=== PATIENT | female | born 1940 | race Caucasian/White ===

== ENCOUNTER → 2017-01-09 | Outpatient (CLI) | payer MEDICARE, OTHER ==
[~2017-01-09] MED LIST: AMIT25TA9 PO; ASPI-992 PO; BACL10TA PO; CITA20TA7 PO; CNC1KV IJ; GABA-488 PO; LANS30CA PO; LEVO50TA PO; LEVO50TA6 PO; LEVO75TA6 PO; POLY17PO23 PO
== END ==
LOC: CARD 08:48
PROVIDERS: ATTEND Internal Medicine Cardiovascular Disease
DX: D15.1 Benign neoplasm of heart (principal); R07.9 Chest pain, unspecified; I95.1 Orthostatic hypotension; R60.0 Localized edema; R55 Syncope and collapse
CPT/HCPCS: 93306

== ENCOUNTER → 2017-04-11 | Outpatient (CLI) | payer MEDICARE, OTHER ==
--- NOTE | 2017-04-11 15:03 | Diagnostic Imaging Report ---
PROCEDURE: CT head without contrast. TECHNIQUE: Multiple contiguous axial images were obtained through the brain without the use of intravenous contrast. INDICATION: Slurred speech and left visual problems. COMPARISON: Prior head CT from 01/28/2016. FINDINGS: The ventricles and sulci are stable in appearance. No sulcal effacement, midline shift or hemorrhage is detected. Cisterns are patent. The visualized paranasal sinuses are clear. IMPRESSION: No acute intracranial process is detected. Dictated by: Dictated on workstation # [id number]
== END ==
LOC: RAD 14:15
PROVIDERS: ATTEND Nurse Practitioner Family
DX: R47.81 Slurred speech (principal); H54.7 Unspecified visual loss
CPT/HCPCS: 36415; 70450; 85652; 86038; 86141

== ENCOUNTER → 2017-04-17 | Outpatient (CLI) | payer MEDICARE, OTHER ==
--- NOTE | 2017-04-17 15:43 | Diagnostic Imaging Report ---
PROCEDURE: US carotid duplex, bilateral. TECHNIQUE: Multiple real-time grayscale images were obtained over the carotid arteries in various projections, bilaterally. Additional duplex Doppler and color Doppler images were also obtained. INDICATION: Left eye blindness. FINDINGS: No significant plaque is identified. The velocities are normal. No velocity elevation or stenosis is seen. Both vertebral arteries show antegrade flow. IMPRESSION: No evidence of a hemodynamically significant stenosis. Dictated by: Dictated on workstation # [id number]
== END ==
LOC: RAD 15:03
PROVIDERS: ATTEND Nurse Practitioner Family
DX: G45.9 Transient cerebral ischemic attack, unspecified (principal); H54.62 Unqualified visual loss, left eye, normal vision right eye
CPT/HCPCS: 93880

== ENCOUNTER 2017-06-26 09:58 | Day surgery (SDC) | payer MEDICARE, OTHER ==
[2017-06-26] VITALS (7 sets, daily range): BP systolic 120–147; BP diastolic 8–80
[~2017-06-26] VITALS: Ht 160 cm; Wt 61.2 kg
[~2017-06-26 09:58] MED LIST changes: -CITA20TA7 PO; +CITA20TA9 PO
[2017-06-26] MEDS ORDERED: LIDOCAINE 1% INJ 20 ML 20 ML VIAL ONE (10:00)
[2017-06-26] MEDS ORDERED: LIDOCAINE 2% VISCOUS 15 ML UDC ONE (10:00)
[2017-06-26] MEDS ORDERED: NS IV 1000 ML 1,000 ML ONE (10:00)
--- OUTSIDE RECORDS SUMMARY | 2017-06-26 10:02 | XMS REPORT | Continuity of Care Document ---
Author Author [facility] Organization [facility] Address Unknown Phone Unavailable Allergies Active Description Code Type Severity Reaction Onset Reported/Identified Relationship to Patient Clinical Status Yes Sulfa (Sulfonamide Antibiotics) [id number] Drug Allergy Moderate Rash 06/16 Yes sulfamethoxazole [id number] Drug Allergy Moderate rash 06/17/2015 Yes trimethoprim [id number] Drug Allergy Moderate rash 06/17/2015 Yes LORACET LORACET Mild n/v 06/17/2015 Yes acetaminophen [id number] Drug Allergy Unknown N/A 06/17/2015 Yes hydrocodone [id number] Drug Allergy Unknown N/A 06/17/2015 Medications There is no data. Problems Date Dx Coded Attending Type Code Diagnosis Diagnosed By 01/24/1599 DAE KERR APRN Ot S31.100A UNSP OPN WND ABD WALL, R UPPER Q W/O PEN 01/24/1599 DAE KERR APRN Ot T81.89XA OTH COMPLICATIONS OF PROCEDURES, NEC, IN 06/17/2015 LASHA RAUSCH MD Ot I10 ESSENTIAL (PRIMARY) HYPERTENSION 06/17/2015 LASHA RAUSCH MD Ot I95.1 ORTHOSTATIC HYPOTENSION 06/17/2015 LASHA RAUSCH MD Ot K57.90 DVRTCLOS OF INTEST, PART UNSP, W/O PERF 06/17/2015 LASHA RAUSCH MD Ot R93.1 ABNORMAL FINDINGS ON DX IMAGING OF HEART 06/17/2015 LASHA RAUSCH MD Ot Z79.899 OTHER ALF (CURRENT) DRUG THERAPY 06/20/2015 LASHA RAUSCH MD Ot I10 ESSENTIAL (PRIMARY) HYPERTENSION 06/20/2015 LASHA RAUSCH MD Ot I95.1 ORTHOSTATIC HYPOTENSION 06/20/2015 LASHA RAUSCH MD Ot K57.90 DVRTCLOS OF INTEST, PART UNSP, W/O PERF 06/20/2015 LASHA RAUSCH MD Ot R93.1 ABNORMAL FINDINGS ON DX IMAGING OF HEART 06/20/2015 MIRACLE HERNANDEZ, LASHA Shields Ot Z79.899 OTHER ALF (CURRENT) DRUG THERAPY 06/30/2015 EVERTON SHAH MD Ot D15.1 BENIGN NEOPLASM OF HEART 06/30/2015 EVERTON SHAH MD Ot E03.9 HYPOTHYROIDISM, UNSPECIFIED 06/30/2015 EVERTON SHAH MD Ot G62.9 POLYNEUROPATHY, UNSPECIFIED 06/30/2015 EVERTON SHAH MD Ot G97.82 OT POSTPROC COMPLICATIONS AND DISORDERS 06/30/2015 EVERTON SHAH MD Ot H54.41 BLINDNESS, RIGHT EYE, NORMAL VISION LEFT 06/30/2015 EVERTON SHAH MD Ot I10 ESSENTIAL (PRIMARY) HYPERTENSION 06/30/2015 EVERTON SHAH MD Ot I34.0 NONRHEUMATIC MITRAL (VALVE) INSUFFICIENC 06/30/2015 EVERTON SHAH MD Ot I69.398 OTHER SEQUELAE OF CEREBRAL INFARCTION 06/30/2015 EVERTON SHAH MD Ot R55 SYNCOPE AND COLLAPSE 06/30/2015 EVERTON SHAH MD Ot Z79.899 OTHER POST ACUTE CARE NURSE (CURRENT) DRUG THERAPY 07/18/2015 EVERTON SHAH MD Ot D15.1 BENIGN NEOPLASM OF HEART 07/18/2015 EVERTON SHAH MD Ot E03.9 HYPOTHYROIDISM, UNSPECIFIED 07/18/2015 EVERTON SHAH MD Ot G62.9 POLYNEUROPATHY, UNSPECIFIED 07/18/2015 EVERTON SHAH MD Ot G97.82 OT POSTPROC COMPLICATIONS AND DISORDERS 07/18/2015 EVERTON SHAH MD Ot H54.41 BLINDNESS, RIGHT EYE, NORMAL VISION LEFT 07/18/2015 EVERTON SHAH MD Ot I10 ESSENTIAL (PRIMARY) HYPERTENSION 07/18/2015 EVERTON SHAH MD Ot I34.0 NONRHEUMATIC MITRAL (VALVE) INSUFFICIENC 07/18/2015 EVERTON SHAH MD Ot I69.398 OTHER SEQUELAE OF CEREBRAL INFARCTION 07/18/2015 EVERTON SHAH MD Ot R55 SYNCOPE AND COLLAPSE 07/18/2015 EVERTON SHAH MD Ot Z79.899 OTHER ALF (CURRENT) DRUG THERAPY 08/16/2015 DAVID HERNANDEZ DAYDAY E Ot E03.9 HYPOTHYROIDISM, UNSPECIFIED 08/16/2015 DAVID HERNANDEZ DAYDAY E Ot E87.1 HYPO-OSMOLALITY AND HYPONATREMIA 08/16/2015 DAVID HERNANDEZ DAYDAY E Ot E87.6 HYPOKALEMIA 08/16/2015 DAVID HERNANDEZ DAYDAY E Ot G60.9 HEREDITARY AND IDIOPATHIC NEUROPATHY, UN 08/16/2015 DAVID HERNANDEZ DAYDAY E Ot H54.41 BLINDNESS, RIGHT EYE, NORMAL VISION LEFT 08/16/2015 DAVID HERNANDEZ DAYDAY E Ot I10 ESSENTIAL (PRIMARY) HYPERTENSION 08/16/2015 DAVID HERNANDEZ DAYDAY E Ot I69.398 OTHER SEQUELAE OF CEREBRAL INFARCTION 08/16/2015 DAVID HERNANDEZ DAYDAY E Ot K21.9 GASTRO-ESOPHAGEAL REFLUX DISEASE WITHOUT 08/16/2015 DAVID HERNANDEZ DAYDAY E Ot K64.9 UNSPECIFIED HEMORRHOIDS 08/16/2015 DAVID HERNANDEZ DAYDAY E Ot L03.311 CELLULITIS OF ABDOMINAL WALL 08/16/2015 DAVID HERNANDEZ DAYDAY E Ot M75.41 IMPINGEMENT SYNDROME OF RIGHT SHOULDER 08/16/2015 DAVID HERNANDEZ DAYDAY E Ot R53.1 WEAKNESS 08/16/2015 DAYDAY HERNANDEZ MD E Ot T81.4XXA INFECTION FOLLOWING A PROCEDURE, INITIAL 08/16/2015 LESTER HERNANDEZ MDIC E Ot Z48.3 AFTERCARE FOLLOWING SURGERY FOR NEOPLASM 08/16/2015 LESTER HERNANDEZ MDIC E Ot Z86.018 PERSONAL HISTORY OF OTHER BENIGN NEOPLAS 09/15/2015 DAE KERR POOL ATTENDANT Ot S31.100A UNSP OPN WND ABD WALL, R UPPER Q W/O PEN 09/15/2015 DAE KERR R POOL ATTENDANT Ot T81.89XA OTH COMPLICATIONS OF PROCEDURES, NEC, IN 09/26/2015 DAE KERR R POOL ATTENDANT Ot S31.100A UNSP OPN WND ABD WALL, R UPPER Q W/O PEN 09/26/2015 DAE KERR R POOL ATTENDANT Ot T81.89XA OTH COMPLICATIONS OF PROCEDURES, NEC, IN 10/06/2015 DAE KERR R POOL ATTENDANT Ot S31.100A UNSP OPN WND ABD WALL, R UPPER Q W/O PEN 10/06/2015 DAE KERR R POOL ATTENDANT Ot T81.89XA OTH COMPLICATIONS OF PROCEDURES, NEC, IN 10/14/2015 EVERTON SHAH MD Ot D15.1 BENIGN NEOPLASM OF HEART 10/14/2015 EVERTON SHAH MD Ot I63.9 CEREBRAL INFARCTION, UNSPECIFIED 10/14/2015 EVERTON SHAH MD Ot I95.1 ORTHOSTATIC HYPOTENSION 10/14/2015 EVERTON SHAH MD Ot R07.9 CHEST PAIN, UNSPECIFIED 10/14/2015 EVERTON SHAH MD Ot R55 SYNCOPE AND COLLAPSE 10/28/2015 EVERTON SHAH MD Ot D15.1 BENIGN NEOPLASM OF HEART 10/28/2015 EVERTON SHAH MD Ot I63.9 CEREBRAL INFARCTION, UNSPECIFIED 10/28/2015 EVERTON SHAH MD Ot I95.1 ORTHOSTATIC HYPOTENSION 10/28/2015 EVERTON SHAH MD Ot R07.9 CHEST PAIN, UNSPECIFIED 10/28/2015 EVERTON SHAH MD Ot R55 SYNCOPE AND COLLAPSE 11/03/2015 DAE KERR APRN Ot S31.100A UNSP OPN WND ABD WALL, R UPPER Q W/O PEN 11/03/2015 DAE KERR APRN Ot T81.89XA OT COMPLICATIONS OF PROCEDURES, NEC, IN 11/07/2015 EVERTON SHAH MD Ot D15.1 BENIGN NEOPLASM OF HEART 11/07/2015 EVERTON SHAH MD Ot I63.9 CEREBRAL INFARCTION, UNSPECIFIED 11/07/2015 EVERTON SHAH MD Ot I95.1 ORTHOSTATIC HYPOTENSION 11/07/2015 EVERTON SHAH MD Ot R07.9 CHEST PAIN, UNSPECIFIED 11/07/2015 EVERTON SHAH MD Ot R55 SYNCOPE AND COLLAPSE 11/23/2015 KODY SHEA CAR WHACKER Ot E03.9 HYPOTHYROIDISM, UNSPECIFIED 11/24/2015 KODY SHEA CAR WHACKER Ot E03.9 HYPOTHYROIDISM, UNSPECIFIED 11/24/2015 KODY SHEA CAR WHACKER Ot Z79.899 OTHER ALF (CURRENT) DRUG THERAPY 11/25/2015 EVERTON SHAH MD Ot D15.1 BENIGN NEOPLASM OF HEART 11/25/2015 EVERTON SHAH MD Ot I63.9 CEREBRAL INFARCTION, UNSPECIFIED 11/25/2015 EVERTON SHAH MD Ot I95.1 ORTHOSTATIC HYPOTENSION 11/25/2015 ALYSSA HERNANDEZ EVERTON Bar Ot R07.9 CHEST PAIN, UNSPECIFIED 11/25/2015 ALYSSA HERNANDEZ, EVERTON Bar Ot R55 SYNCOPE AND COLLAPSE 11/25/2015 KODY SHEA CAR WHACKER Ot E03.9 HYPOTHYROIDISM, UNSPECIFIED 11/25/2015 KODY SHEA CAR WHACKER Ot Z79.899 OTHER POST ACUTE CARE NURSE (CURRENT) DRUG THERAPY 12/15/2015 KODY SHEA CAR WHACKER Ot E03.9 HYPOTHYROIDISM, UNSPECIFIED 12/15/2015 KODY SHEA CAR WHACKER Ot Z79.899 OTHER ALF (CURRENT) DRUG THERAPY 01/28/2016 LASHA RAUSCH MD Ot G51.0 [place] 01/28/2016 LASHA RAUSCH MD Ot I10 ESSENTIAL (PRIMARY) HYPERTENSION 01/28/2016 LASHA RAUSCH MD Ot R29.810 FACIAL WEAKNESS 01/28/2016 LASHA RAUSCH MD Ot Z79.82 POST ACUTE CARE NURSE (CURRENT) USE OF ASPIRIN 01/28/2016 LASHA RAUSCH MD Ot Z79.899 OTHER ALF (CURRENT) DRUG THERAPY 01/29/2016 ALYSSA HERNANDEZ, EVERTON Bar Ot D15.1 BENIGN NEOPLASM OF HEART 01/29/2016 EVERTON SHAH MD Ot I63.9 CEREBRAL INFARCTION, UNSPECIFIED 01/29/2016 EVERTON SHAH MD Ot I95.1 ORTHOSTATIC HYPOTENSION 01/29/2016 EVERTON SHAH MD Ot R07.9 CHEST PAIN, UNSPECIFIED 01/29/2016 EVERTON SHAH MD Ot R55 SYNCOPE AND COLLAPSE 01/29/2016 KODY SHEAP Ot E03.9 HYPOTHYROIDISM, UNSPECIFIED 01/29/2016 KODY SHEAP Ot Z79.899 OTHER POST ACUTE CARE NURSE (CURRENT) DRUG THERAPY 01/31/2016 LASHA RAUSCH MD Ot G51.0 [place] 01/31/2016 LASHA RAUSCH MD Ot I10 ESSENTIAL (PRIMARY) HYPERTENSION 01/31/2016 LASHA RAUSCH MD Ot R29.810 FACIAL WEAKNESS 01/31/2016 LASHA RAUSCH MD Ot Z79.82 ALF (CURRENT) USE OF ASPIRIN 01/31/2016 LASHA RAUSCH MD Ot Z79.899 OTHER POST ACUTE CARE NURSE (CURRENT) DRUG THERAPY 01/07/2017 EVERTON SHAH MD Ot D15.1 BENIGN NEOPLASM OF HEART 01/07/2017 EVERTON SHAH MD Ot I63.9 CEREBRAL INFARCTION, UNSPECIFIED 01/07/2017 EVERTON SHAH MD J Ot I95.1 ORTHOSTATIC HYPOTENSION 01/07/2017 EVERTON SHAH MD J Ot R07.9 CHEST PAIN, UNSPECIFIED 01/07/2017 EVERTON SHAH MD J Ot R55 SYNCOPE AND COLLAPSE 01/07/2017 KODY SHEA CAR WHACKER Ot E03.9 HYPOTHYROIDISM, UNSPECIFIED 01/07/2017 KODY SHEA CAR WHACKER Ot Z79.899 OTHER ALF (CURRENT) DRUG THERAPY 01/29/2017 EVERTON SHAH MD Ot D15.1 BENIGN NEOPLASM OF HEART 01/29/2017 EVERTON SHAH MD Ot I95.1 ORTHOSTATIC HYPOTENSION 01/29/2017 EVERTON SHAH MD Ot R07.9 CHEST PAIN, UNSPECIFIED 01/29/2017 EVERTON SHAH MD Ot R55 SYNCOPE AND COLLAPSE 01/29/2017 EVERTON SHAH MD Ot R60.0 LOCALIZED EDEMA 04/11/2017 EVERTON SHAH MD Ot D15.1 BENIGN NEOPLASM OF HEART 04/11/2017 EVERTON SHAH MD Ot I63.9 CEREBRAL INFARCTION, UNSPECIFIED 04/11/2017 EVERTON SHAH MD Ot I95.1 ORTHOSTATIC HYPOTENSION 04/11/2017 EVERTON SHAH MD Ot R07.9 CHEST PAIN, UNSPECIFIED 04/11/2017 EVERTON SHAH MD J Ot R55 SYNCOPE AND COLLAPSE 04/11/2017 KODY SHEA CAR WHACKER Ot E03.9 HYPOTHYROIDISM, UNSPECIFIED 04/11/2017 KODY SHEA CAR WHACKER Ot Z79.899 OTHER POST ACUTE CARE NURSE (CURRENT) DRUG THERAPY 04/11/2017 EVERTON SHAH MD Ot D15.1 BENIGN NEOPLASM OF HEART 04/11/2017 EVERTON SHAH MD J Ot I95.1 ORTHOSTATIC HYPOTENSION 04/11/2017 EVERTON SHAH MD J Ot R07.9 CHEST PAIN, UNSPECIFIED 04/11/2017 EVERTON SHAH MD J Ot R55 SYNCOPE AND COLLAPSE 04/11/2017 EVERTON SHAH MD Ot R60.0 LOCALIZED EDEMA 04/16/2017 MARSHALL SHARMA POOL ATTENDANT Ot H53.133 SUDDEN VISUAL LOSS, BILATERAL 04/16/2017 MARSHALL SHARMA POOL ATTENDANT Ot H53.133 SUDDEN VISUAL LOSS, BILATERAL 04/18/2017 MARSHALL SHARMA POOL ATTENDANT Ot G45.9 TRANSIENT CEREBRAL ISCHEMIC ATTACK, UNSP 04/18/2017 MARSHALL SHARMA POOL ATTENDANT Ot H54.62 UNQUALIFIED VISUAL LOSS, LEFT EYE, BENEDICT 05/14/2017 MARSHALL SHARMA POOL ATTENDANT Ot G45.9 TRANSIENT CEREBRAL ISCHEMIC ATTACK, UNSP 05/14/2017 MARSHALL SHARMA POOL ATTENDANT Ot H54.62 UNQUALIFIED VISUAL LOSS, LEFT EYE, BENEDICT 05/17/2017 MARSHALL SHARMA POOL ATTENDANT Ot H54.7 UNSPECIFIED VISUAL LOSS 05/17/2017 MARSHALL SHARMA POOL ATTENDANT Ot R47.81 SLURRED SPEECH 06/25/2017 MARSHALL SHARMA POOL ATTENDANT Ot H54.7 UNSPECIFIED VISUAL LOSS 06/25/2017 MARSHALL SHARMA POOL ATTENDANT Ot R47.81 SLURRED SPEECH 06/25/2017 MRASHALL SHARMA POOL ATTENDANT Ot G45.9 TRANSIENT CEREBRAL ISCHEMIC ATTACK, UNSP 06/25/2017 MARSHALL SHARMA POOL ATTENDANT Ot H54.62 UNQUALIFIED VISUAL LOSS, LEFT EYE, BENEDICT 06/25/2017 EVERTON SHAH MD Ot D15.1 BENIGN NEOPLASM OF HEART 06/25/2017 EVERTON SHAH MD Ot I63.9 CEREBRAL INFARCTION, UNSPECIFIED 06/25/2017 EVERTON SHAH MD Ot I95.1 ORTHOSTATIC HYPOTENSION 06/25/2017 EVERTON SHAH MD Ot R07.9 CHEST PAIN, UNSPECIFIED 06/25/2017 EVERTON SHAH MD Ot R55 SYNCOPE AND COLLAPSE 06/25/2017 KODY SHEA Ot E03.9 HYPOTHYROIDISM, UNSPECIFIED 06/25/2017 KODY SHEA Ot Z79.899 OTHER ALF (CURRENT) DRUG THERAPY 06/25/2017 EVERTON SHAH MD Ot D15.1 BENIGN NEOPLASM OF HEART 06/25/2017 EVERTON SHAH MD Ot I95.1 ORTHOSTATIC HYPOTENSION 06/25/2017 EVERTON SHAH MD Ot R07.9 CHEST PAIN, UNSPECIFIED 06/25/2017 EVERTON SHAH MD Ot R55 SYNCOPE AND COLLAPSE 06/25/2017 EVERTON SHAH MD Ot R60.0 LOCALIZED EDEMA 06/25/2017 MARSHALL SHARMA APRN Ot H54.7 UNSPECIFIED VISUAL LOSS 06/25/2017 MARSHALL SHARMA APRN Ot R47.81 SLURRED SPEECH 06/25/2017 MARSHALL SHARMA APRN Ot G45.9 TRANSIENT CEREBRAL ISCHEMIC ATTACK, UNSP 06/25/2017 MARSHALL SHARMA APRN Ot H54.62 UNQUALIFIED VISUAL LOSS, LEFT EYE, BENEDICT Procedures Code Description Performed By Performed On [id number] INTRODUCTION OF ANTI- INFLAMMATORY INTO J 08/11/2015 Results Test Result Range Complete blood count (CBC) with automated white blood cell (WBC) differential - 11/23/15 11:08 Blood leukocytes automated count (number/volume) 8.1 10*3/uL 4.3-11.0 Blood erythrocytes automated count (number/volume) 4.65 10*6/uL 4.35-5.85 Venous blood hemoglobin measurement (mass/volume) 12.8 g/dL 11.5-16.0 Blood hematocrit (volume fraction) 40 % 35-52 Automated erythrocyte mean corpuscular volume 85 [foz_us] 80-99 Automated erythrocyte mean corpuscular hemoglobin (mass per erythrocyte) 28 pg 25-34 Automated erythrocyte mean corpuscular hemoglobin concentration measurement ( mass/volume) 32 g/dL 32-36 Automated erythrocyte distribution width ratio 14.4 % 10.0-14.5 Automated blood platelet count (count/volume) 275 10*3/uL 130-400 Automated blood platelet mean volume measurement 10.4 [foz_us] 7.4-10.4 Automated blood neutrophils/100 leukocytes 68 % 42-75 Automated blood lymphocytes/100 leukocytes 23 % 12-44 Blood monocytes/100 leukocytes 7 % 0-12 Automated blood eosinophils/100 leukocytes 2 % 0-10 Automated blood basophils/100 leukocytes 1 % 0-10 Blood neutrophils automated count (number/volume) 5.5 10*3 1.8-7.8 Blood lymphocytes automated count (number/volume) 1.9 10*3 1.0-4.0 Blood monocytes automated count (number/volume) 0.6 10*3 0.0-1.0 Automated eosinophil count 0.1 10*3/uL 0.0-0.3 Automated blood basophil count (count/volume) 0.1 10*3/uL 0.0-0.1 Comprehensive metabolic panel - 11/23/15 11:08 Serum or plasma sodium measurement (moles/volume) 138 mmol/L 135-145 Serum or plasma potassium measurement (moles/volume) 3.8 mmol/L 3.6-5.0 Serum or plasma chloride measurement (moles/volume) 105 mmol/L 98-107 Carbon dioxide 22 mmol/L 21-32 Serum or plasma anion gap determination (moles/volume) 11 mmol/L 5-14 Serum or plasma urea nitrogen measurement (mass/volume) 13 mg/dL 7-18 Serum or plasma creatinine measurement (mass/volume) 0.85 mg/dL 0.60-1.30 Serum or plasma urea nitrogen/creatinine mass ratio 15 NRG Serum or plasma creatinine measurement with calculation of estimated glomerular filtration rate > NRG Serum or plasma glucose measurement (mass/volume) 87 mg/dL 70-105 Serum or plasma calcium measurement (mass/volume) 9.6 mg/dL 8.5-10.1 Serum or plasma total bilirubin measurement (mass/volume) 0.4 mg/dL 0.1-1.0 Serum or plasma alkaline phosphatase measurement (enzymatic activity/volume) 74 U/L 40-136 Serum or plasma aspartate aminotransferase measurement (enzymatic activity/ volume) 20 U/L 5-34 Serum or plasma alanine aminotransferase measurement (enzymatic activity/volume ) 15 U/L 0-55 Serum or plasma protein measurement (mass/volume) 7.8 g/dL 6.4-8.2 Serum or plasma albumin measurement (mass/volume) 4.0 g/dL 3.2-4.5 THYROID STIMULATING HORMONE - 11/23/15 11:08 THYROID STIMULATING HORMONE 2.50 u[iU]/mL 0.35-4.94 Serum or plasma thyroxine (T4) free measurement (mass/volume) - 11/23/15 11:08 Serum or plasma thyroxine (T4) free measurement (mass/volume) 0.94 ng/dL 0.70-1.48 Erythrocyte sedimentation rate by westergren method - 04/11/17 14:30 Erythrocyte sedimentation rate by westergren method 26 mm 0-30 Serum or plasma C reactive protein measurement (mass/volume) - 04/11/17 14:30 Serum or plasma C reactive protein measurement (mass/volume) 0.52 mg /dL 0.00-0.50 [id number] - 04/11/17 14:30 Screening antinuclear antibody (AMADEO) assay by enzyme immunoassay <1: 80 <1:80 Encounters ACCT No. Visit Date/Time Discharge Status Pt. Type Provider Facility Loc./Unit Complaint [id number] 04/17/2017 15:03:00 04/17/2017 23:59:59 CLS Outpatient MARSHALL SHARMA APRN [facility] RAD VISION LOSS,TIA [id number] 04/11/2017 14:15:00 04/11/2017 23:59:59 CLS Outpatient MARSHALL SHARMA APRN [facility] RAD WEAKNESS,VISION CHANGE,SLURRED SPEECH [id number] 01/09/2017 08:48:00 01/09/2017 23:59:59 CLS Outpatient EVERTON SHAH MD [facility] CARD CHEST PAIN R07.9 [id number] 01/28/2016 10:06:00 01/28/2016 12:12:00 DIS Emergency MIRACLE HERNANDEZ, LASHA Shields [facility] ER CONGESTION/R SIDE FACIAL NUMBNESS/SLURRED SPEECH [id number] 11/23/2015 11:00:00 11/23/2015 23:59:59 CLS Outpatient KODY SHEA [facility] LAB CBC,TSH,FREE T4 [id number] 11/03/2015 13:36:00 11/03/2015 16:00:00 DIS Outpatient DAE KERR APRN [facility] WOUNDCARE [id number] 10/06/2015 13:27:00 10/06/2015 23:59:59 CLS Outpatient EVERTON SHAH MD [facility] CARD ATRIAL MYXOMA,CVA,CP [id number] 08/07/2015 16:03:00 08/16/2015 14:55:00 DIS Inpatient DAVID HERNANDEZ, DAYDAY Aguiar [facility] IRF DEBILITY [id number] 06/29/2015 08:33:00 06/30/2015 09:30:00 DIS Outpatient ALYSSA HERNANDEZ, EVERTON Bar [facility] CATH DIZZINES,HYPOTENSION [id number] 06/17/2015 11:21:00 06/17/2015 18:07:00 DIS Emergency MIRACLE HERNANDEZ, LASHA Shields [facility] ER CHEST PAIN/LOW BP [id number] 06/26/2017 10:30:00 PEN Preadmit ALYSSA HERNANDEZ, EVERTON Bar [facility] CATH CRYPTOGENIC STROKE
[2017-06-26] MEDS ORDERED: NS IV 1000 ML 1,000 ML IV SCH (10:15)
[2017-06-26] MEDS ORDERED: MIDAZOLAM 5 MG/5 ML (VERSED) VIAL ONE (10:55)
[2017-06-26] MEDS ORDERED: fentaNYL INJECTION 100 MCG/2 ML AMP ONE (10:55)
--- NOTE | 2017-06-26 11:24 | Cardiac Procedure Note-CS/ASA ---
Pre-Procedure Note Pre-Op Procedure Note H&P Reviewed The H&P was reviewed, patient examined and no changes noted. Date H&P Reviewed: June 26, 2017 Time H&P Reviewed: 11:24 Conscious Sedation Pre-Proced Time Reviewed: 11:24 ASA Class: 3 Airway Mallampati Classification: (venetie ira appropriate class) I. II. III, IV Lungs Heart ASA score ASA 1: a normal healthy patient ASA 2: a patient with a mild systemic disease (mid diabetes, controlled hypertension, obesity x ASA 3: a patient with a severe systemic disease that limits activity (angina , COPD, prior Myocardial infarction) ASA 4: a patient with an incapacitating disease that is a constant threat to life (CHF, renal failure) ASA 5: a moribund patient not expected to survive 24 hrs. (ruptured aneurysm) ASA 6: a declared brain patient whose organs are being harvested. For emergent operations, add the letter E after the classification Grade 3 Sedation Plan: Analgesia, Amnesia, Plan communicated to team members, Discussed options with patient/fam, Discussed risks with patient/fam Note The patient is an appropriate candidate to undergo the planned procedure, sedation, and anesthesia. The patient immediately re-assessed prior to indication. EVERTON SHAH MD June 26, 2017 11:24
--- NOTE | 2017-06-26 11:31 | Implantation of Loop Monitor ---
Implant of Loop Monitior IMPLANTATION OF LOOP MONITOR REPORT DATE OF PROCEDURE: 06/26/17 PREOP DIAGNOSIS: Cryptogenic stroke POSTOP DIAGNOSIS: Cryptogenic stroke PROCEDURE DETAILS: The patient is a 76 female with history of paroxysmal atrial fibrillation requiring long-term surveillance. Therefore implantable loop recorder was discussed and agreed with the patient. Informed consent was taken. All risks and complications were discussed at length. The patient was draped and prepped in the usual sterile fashion. Local anesthesia was lidocaine, which was given in the substernal area close to the 4th intercostal space. Loop monitor [employer] with serial number [id number] was implanted according to the protocol. Steri-Strips were placed at the end of the procedure. There were no complications and the patient tolerated the procedure well. The device was interrogated with a voltage of. ANESTHESIA: Local anesthesia with lidocaine. COMPLICATIONS: None CONTRAST/FLUOROSCOPY: None CONCLUSION: Successful reveal device implantation with no complications FINAL DIAGNOSIS: Cryptogenic stroke Atrial myxoma Hypertension Hyperlipidemia EVERTON SHAH MD June 26, 2017 11:31
== END 2017-06-26 12:37 | disposition home or self-care (01) ==
LOC: CATH 09:58
PROVIDERS: ATTEND Internal Medicine Cardiovascular Disease
DX: I63.9 Cerebral infarction, unspecified (principal); D15.1 Benign neoplasm of heart; I10 Essential (primary) hypertension; E78.5 Hyperlipidemia, unspecified; I95.1 Orthostatic hypotension; G62.9 Polyneuropathy, unspecified; E03.9 Hypothyroidism, unspecified
CPT/HCPCS: 33282; 93325

== ENCOUNTER 2017-10-30 05:33 | Outpatient (CLI) | payer MEDICARE, OTHER ==
[~2017-10-30] VITALS: Ht 160 cm; Wt 61.2 kg
[2017-10-30] MEDS ORDERED: LEVO50TA6 PO (16:23)
[2017-10-30] MEDS ORDERED: RIVA20TA PO (16:23)
[2017-10-30] MEDS ORDERED: HYDR25TA4 PO (16:25)
== END 2017-10-30 16:36 | disposition home or self-care (01) ==
LOC: PREOP 05:33
PROVIDERS: ATTEND Surgery
DX: Z01.818 Encounter for other preprocedural examination (principal)

== ENCOUNTER 2017-11-01 06:14 | Day surgery (SDC) | payer MEDICARE, OTHER ==
[~2017-11-01] VITALS: Ht 160 cm; Wt 61.2 kg
[~2017-11-01 06:14] MED LIST changes: +HYDR25TA4 PO; +RIVA20TA PO
[2017-11-01] MEDS ORDERED: ceFAZolin INJECTION 1,000 MG in NS (IVPB) 50 ML IV ONE (06:30)
[2017-11-01] MEDS ORDERED: PREGABALIN 75 MG (LYRICA) CAP PO ONE (06:30)
[2017-11-01] MEDS ORDERED: ACETAMINOPHEN 500 MG TAB (TYLENOL) PO ONE (06:30)
[2017-11-01] MEDS ORDERED: CELECOXIB 100 MG (CeleBREX) CAP PO ONE (06:30)
[2017-11-01 06:35] VITALS: BP 131/84
[2017-11-01] MEDS ORDERED: CATHETER FLUSH 10 ML SYR IV PRN (06:45)
[2017-11-01 07:08] LABS: BASOPHILS % (AUTO) 1 % (0-10); EOSINOPHILS # (AUTO) 0.2 10^3/uL (0.0-0.3); EOSINOPHILS % (AUTO) 3 % (0-10); HEMATOCRIT 32 % (35-52); HEMOGLOBIN 10.3 G/DL (11.5-16.0); LYMPHOCYTES # (AUTO) 1.6 X 10^3 (1.0-4.0); LYMPHOCYTES % (AUTO) 31 % (12-44); MEAN CORPUSCULAR HEMOGLOBIN 27 PG (25-34); MEAN CORPUSCULAR HGB CONC 32 G/DL (32-36); MEAN CORPUSCULAR VOLUME 85 FL (80-99); MEAN PLATELET VOLUME 9.6 FL (7.4-10.4); MONOCYTES # (AUTO) 0.4 X 10^3 (0.0-1.0); MONOCYTES % (AUTO) 8 % (0-12); NEUTROPHILS % (AUTO) 57 % (42-75); PLATELET COUNT 278 10^3/uL (130-400); RED CELL DISTRIBUTION WIDTH 14.9 % (10.0-14.5); WHITE BLOOD COUNT 5.3 10^3/uL (4.3-11.0)
[2017-11-01] MEDS ORDERED: KETAMINE HCL 100 MG/ML 5 ML VIAL ONE (07:10)
[2017-11-01] MEDS: LACTATED RINGERS 1,000 ML IV PRN ×2 (07:14→09:40)
[2017-11-01] MEDS ORDERED: BUP/EPI 0.5% 1:200,000 (SENSORCAINE) 30 ML VIAL ONE (07:23)
[2017-11-01] MEDS ORDERED: ONDANSETRON 4 MG/2 ML (SDV) Z0FRAN ONE (07:40)
[2017-11-01] MEDS ORDERED: LIDOCAINE PF 0.5% 50 ML (XYLOCAINE) VIAL ONE (07:40)
[2017-11-01] MEDS ORDERED: ROCURONIUM 10 MG/ML 5 ML SYRINGE IV ONE (07:40)
[2017-11-01] MEDS ORDERED: DEXAMETHASONE 10 MG/ML (DECADRON) 1 ML VIAL ONE (07:40)
[2017-11-01] MEDS ORDERED: SEVOFLURANE (ULTANE) 15 ML INHAL SOLN ONE ×7 (07:40→10:51)
[2017-11-01] MEDS ORDERED: proPOfol 200 MG/20 ML (DIPRIVAN) VIAL IV ONE (07:40)
[2017-11-01] MEDS ORDERED: NS (IVPB) 250 ML ONE (07:40)
--- NOTE | 2017-11-01 08:29 | Progress Note-Pre Operative ---
Pre-Operative Progress Note H&P Reviewed The H&P was reviewed, patient examined and no changes noted. Date Seen by Provider: Oct 23, 2017 Time Seen by Provider: 15:00 Date H&P Reviewed: Nov 01, 2017 Time H&P Reviewed: 08:29 Pre-Operative Diagnosis: Ventral hernia TERELL FLORIAN MD Nov 01, 2017 08:29
[2017-11-01] MEDS ORDERED: ROPIVACAINE 5MG/ML 30ML VIAL ONE (09:49)
--- NOTE | 2017-11-01 10:10 | Operative Report ---
Operative Report Date of Procedure/Surgery Nov 01, 2017 Surgeon (s) TERELL FLORIAN MD Kitchen Lead (s): N/A Post-Operative Diagnosis Same with 2 separate defects, 1.5 and 2 cm each Procedure Performed Robotic assisted repair of ventral hernia with mesh Description of Procedure Anesthesia Type: General Estimated blood loss (mL): Minimal Specimen(s) collected/removed None Description of the Procedure Indication for the procedure: This lady presented with a symptomatic ventral hernia, superior to her umbilicus. She was offered repair using minimally invasive technique with robotic assistance and reinforcement with mesh. Informed consent was obtained after reviewing the operative details and complications of wound infection, hematoma, cardiorespiratory dysfunction and recurrence of the hernia. Description of procedure: She was placed supine on the operative table and general anesthesia induced. A gram of Ancef was administered intravenously as prophylaxis against wound infection. Sequential compression devices were placed around her legs, to minimize the risk of venous thrombosis. Abdomen was prepared and draped in the usual sterile manner. Pneumoperitoneum was established using a Veress needle introduced over the right subcostal margin. Intra-abdominal pressure was maintained at 15 mmHg, using carbon dioxide insufflation. A 12 mm trocar was placed and anatomy visualized using a high definition, 3-dimensional laparoscope associated with da Braeden system. The symptomatic hernia, about 1.5 cm width was identified superior to the umbilicus. Under direct view, I placed another 12 mm trocar over the right side of the abdomen, along the midaxillary line, followed by an 8 mm trocar over the right lower quadrant. The robotic system was then docked in place. Extraperitoneal fat contained within the center body hernia was taken down using the cautery. Falciform ligament was taken down using the same device, revealing another defect, about 2 cm in diameter, just cephalad to the spermatic 1. It was also cleared of extubated at, leaving adequate primary repair with overlap oozing a mesh. Both defects were closed separately using 0V LOC, nonabsorbable sutures robotic assistance, without any tension. They were reinforced with 1 polypropylene mesh , measuring 11.4 cm in diameter. The mesh was held up using the self-retaining balloon system and the edges were secured using 20V LOC sutures with the robotic assistance. Hemostasis was satisfactory and the operation concluded The fascia over each of the incision was closed using #1 Vicryl. Skin incisions were closed using 4-0 Vicryl, in a subcuticular fashion. 0.5 percent Marcaine with epinephrine was infiltrated along the incisions, both preemptively and at the conclusion of the operation. She tolerated the procedure well, was extubated in the operating room and taken to the recovery room in a stable condition. Findings of the Procedure see op report Allergies and Home Medications Allergies Coded Allergies: Sulfa (Sulfonamide Antibiotics) (Unverified Allergy, Intermediate, Rash, ) sulfamethoxazole (Unverified Allergy, Intermediate, rash, 06/17/15) trimethoprim (Unverified Allergy, Intermediate, rash, 06/17/15) hydrocodone (Unverified Allergy, Unknown, 06/17/15) Home Medications Aspirin/Acetaminophen/Caffeine 1 Each Tablet, 2 EACH PO BID, (Reported) Cyanocobalamin 1,000 Mcg/Ml Inj, 1,000 MCG IJ MONTHLY, (Reported) Gabapentin 300 Mg Capsule, 300 MG PO TID, (Reported) Hydrochlorothiazide 25 Mg Tablet, 25 MG PO DAILY, (Reported) Lansoprazole 30 Mg Capsule.dr, 30 MG PO DAILY, (Reported) Levothyroxine Sodium 50 Mcg Tablet, 50 MCG PO DAILY, (Reported) Polyethylene Glycol 3350 17 Gm Powd.pack, 17 GM PO PRN, (Reported) Rivaroxaban 20 Mg Tablet, 20 MG PO DAILY, (Reported) Patient Home Medication List Home Medication List Reviewed: Yes TERELL FLORIAN MD Nov 01, 2017 10:10
[2017-11-01] MEDS ORDERED: TRAM50TA2 PO (10:14)
[2017-11-01] MEDS ORDERED: fentaNYL INJECTION 100 MCG/2 ML AMP IV PRN (10:15)
--- NOTE | 2017-11-01 10:16 | Discharge Inst-Simple/Standard ---
Discharge Inst-Standard Discharge Medications New, Converted or Re-Newed RX: RX on Chart Patient Instructions/Follow Up Plan of Care/Instructions/FU: Band-Aids of in a.m. Follow-up in 4 weeks. Resume xareloto on Saturday the Activity as Tolerated: No Goal: No lifting or pushing Discharge Diet: No Restrictions TERELL FLORIAN MD Nov 01, 2017 10:16
[2017-11-01] MEDS ORDERED: morphine INJ 10 MG/ML 1ML (SYR OR VIAL) IVP ONE (10:45)
[2017-11-01] MEDS ORDERED: ONDANSETRON 4 MG/2 ML (SDV) Z0FRAN IVP PRN (10:45)
[2017-11-01] MEDS: LACTATED RINGERS 1,000 ML IV SCH ×2 (10:50→15:20)
[2017-11-01] MEDS ORDERED: NEOSTIGMINE 1 MG/ML 5 ML SYRINGE ONE (10:51)
[2017-11-01] MEDS ORDERED: GLYCOPYRROLATE 0.2 MG/ML (ROBINUL) 2 ML VIAL ONE (10:51)
[2017-11-01] MEDS: KETOROLAC 30 MG/ML VIAL IV SCH ×3 (10:53→19:52)
[2017-11-01 11:50] VITALS: BP 122/62
[2017-11-01] MEDS ORDERED: GABAPENTIN 300 MG (NEURONTIN) CAP PO SCH (13:00)
[2017-11-01] MEDS: ONDANSETRON 4 MG/2 ML (SDV) Z0FRAN IVP PRN (13:12)
[2017-11-01] MEDS ORDERED: PATIENT MAY USE OWN MEDS, ALL MC SCH (16:00)
[2017-11-01 16:10] VITALS: BP 135/62
[2017-11-01] MEDS ORDERED: oxyCODONE/APAP 5/325MG (PERCOCET 5) TABLET PO PRN (18:45)
[2017-11-01] MEDS: GABAPENTIN 300 MG (NEURONTIN) CAP PO SCH (20:28)
[2017-11-01 20:38] VITALS: BP 148/71
[2017-11-02 00:15] VITALS: BP 114/55
[2017-11-02] MEDS: KETOROLAC 30 MG/ML VIAL IV SCH ×4 (00:53→18:33)
[2017-11-02 04:00] VITALS: BP 125/56
[2017-11-02] MEDS: LEVOTHYROXINE 50 MCG (LEVOTHROID) TAB PO SCH (07:07)
[2017-11-02] MEDS: PANTOPRAZOLE 40 MG (PROTONIX) TAB PO SCH (07:07)
[2017-11-02 08:00] VITALS: BP 134/60
[2017-11-02] MEDS: GABAPENTIN 300 MG (NEURONTIN) CAP PO SCH ×3 (08:54→21:50)
[2017-11-02] MEDS ORDERED: NON-FORMULARY MEDICATION 1 EA EA (Lansoprazole 30 MG) PO SCH (09:00)
--- NOTE | 2017-11-02 10:20 | Anesthesia-General Post-Op ---
General Patient Condition Mental Status/LOC: Same as Preop Cardiovascular: Satisfactory Nausea/Vomiting: Absent Respiratory: Satisfactory Pain: Controlled Complications: Absent Post Op Complications Complications None Follow Up Care/Instructions Patient Instructions None needed. Anesthesia/Patient Condition Patient Condition Patient is doing well, no complaints, stable vital signs, no apparent adverse anesthesia problems. No complications reported per nursing. TAYE DAVIS CRNA Nov 02, 2017 10:20
[2017-11-02] MEDS: ONDANSETRON 4 MG/2 ML (SDV) Z0FRAN IVP PRN (10:44)
--- NOTE | 2017-11-02 11:47 | Progress Note-Standard ---
Standard Progress Note Progress Notes/Assess & Plan Date Seen by Provider: Nov 02, 2017 Time Seen by Provider: 09:45 Progress/Assessment & Plan afebrile and vital signs stable. Incisions dry. She requires help to get out of bed and therefore would benefit from another day of hospital care. Final Diagnosis ventral hernia. TERELL FLORIAN MD Nov 02, 2017 11:47
[2017-11-02 12:00] VITALS: BP 143/63
[2017-11-02] MEDS: HYDROCHLOROTHIAZIDE 25 MG (HCTZ) TAB PO SCH (12:29)
[2017-11-02 15:21] VITALS: BP 132/61
[2017-11-02 19:25] VITALS: BP 139/80
[2017-11-03] VITALS: BP 109/55
[2017-11-03] MEDS: KETOROLAC 30 MG/ML VIAL IV SCH (00:09)
[2017-11-03] MEDS: PANTOPRAZOLE 40 MG (PROTONIX) TAB PO SCH (05:54)
[2017-11-03] MEDS: LEVOTHYROXINE 50 MCG (LEVOTHROID) TAB PO SCH (05:57)
[2017-11-03 08:00] VITALS: BP 135/65
[2017-11-03] MEDS: GABAPENTIN 300 MG (NEURONTIN) CAP PO SCH (08:11)
[2017-11-03] MEDS: HYDROCHLOROTHIAZIDE 25 MG (HCTZ) TAB PO SCH (08:12)
--- NOTE | 2017-11-03 11:26 | Progress Note-Standard ---
Standard Progress Note Progress Notes/Assess & Plan Date Seen by Provider: Nov 03, 2017 Time Seen by Provider: 09:00 Progress/Assessment & Plan afebrile and vital signs stable. Incisions dry. She requires help to get out of bed and therefore would benefit from another day of hospital care. \ pain control and mobility much improved. Could be discharged home. Final Diagnosis ventral hernia. TERELL FLORIAN MD Nov 03, 2017 11:26
[2017-11-03 11:58] VITALS: BP 135/65
== END 2017-11-03 11:45 | disposition home or self-care (01) ==
LOC: SDC 06:14 → 4TH 12:06 → SDC 11-03 11:45
PROVIDERS: ATTEND Surgery
DX: K43.9 Ventral hernia without obstruction or gangrene (principal); G62.9 Polyneuropathy, unspecified; I10 Essential (primary) hypertension; K21.9 Gastro-esophageal reflux disease without esophagitis; Z11.2 Encounter for screening for other bacterial diseases; Z79.82 Long term (current) use of aspirin; Z79.899 Other long term (current) drug therapy; Z96.659 Presence of unspecified artificial knee joint; Z86.73 Personal history of transient ischemic attack (TIA), and cerebral infarction without residual deficits; Z98.1 Arthrodesis status
CPT/HCPCS: 36415; 85025; 87081; 94664

== ENCOUNTER → 2017-11-29 | Outpatient (CLI) | payer MEDICARE, OTHER ==
[~2017-11-29] MED LIST changes: +TRAM50TA2 PO
--- NOTE | 2017-11-29 15:43 | Diagnostic Imaging Report ---
INDICATION: Hernia repair three weeks ago with upper abdominal pain. TIME OF EXAM: 03:49 p.m. No free air is seen. There are surgical clips in gallbladder fossa. Bowel gas pattern is nonobstructive. No pathologic calcifications are seen. Postop changes of the posterior lumbar fusion is seen at approximately L4-L5 level. IMPRESSION: No acute abnormality is detected. Dictated by: Dictated on workstation # [id number]
== END ==
LOC: RAD 15:12
PROVIDERS: ATTEND Nurse Practitioner Family
DX: K59.00 Constipation, unspecified (principal); Z98.890 Other specified postprocedural states
CPT/HCPCS: 74019

== ENCOUNTER 2018-02-24 14:10 | Observation (INO) | payer MEDICARE, OTHER ==
[~2018-02-24] VITALS: Ht 162.6 cm; Wt 63.6 kg
[~2018-02-24 14:10] MED LIST changes: -POLY17PO23 PO; +POLY17PO31 PO
--- OUTSIDE RECORDS SUMMARY | 2018-02-24 14:15 | XMS REPORT | Continuity of Care Document ---
Author Author [facility] Organization [facility] Address Unknown Phone Unavailable Allergies Active Description Code Type Severity Reaction Onset Reported/Identified Relationship to Patient Clinical Status Yes Sulfa (Sulfonamide Antibiotics) [id number] Drug Allergy Moderate Rash 06/16 Yes sulfamethoxazole [id number] Drug Allergy Moderate rash 06/17/2015 Yes trimethoprim [id number] Drug Allergy Moderate rash 06/17/2015 Yes LORACET LORACET Mild n/v 06/17/2015 Yes acetaminophen [id number] Drug Allergy Unknown N/A 06/17/2015 Yes hydrocodone [id number] Drug Allergy Unknown N/A 06/17/2015 Medications There [...] 06/30/2015 EVERTON SHAH MD Ot Z79.899 OTHER ALF (CURRENT) DRUG THERAPY 07/18/2015 EVERTON SHAH MD [...] E Ot I10 ESSENTIAL (PRIMARY) HYPERTENSION 08/16/2015 ADVID HERNANDEZ DAYDAY E Ot I69.398 OTHER SEQUELAE [...] OF OTHER BENIGN NEOPLAS 09/15/2015 DAE KERR TIP BANDING MACHINE OPERATOR Ot S31.100A UNSP OPN WND ABD WALL, R UPPER Q W/O PEN 09/15/2015 DAE KERR R TIP BANDING MACHINE OPERATOR Ot T81.89XA OTH COMPLICATIONS OF PROCEDURES, NEC, IN 09/26/2015 DAE KERR R TIP BANDING MACHINE OPERATOR Ot S31.100A UNSP OPN WND ABD WALL, R UPPER Q W/O PEN 09/26/2015 DAE KERR R TIP BANDING MACHINE OPERATOR Ot T81.89XA OTH COMPLICATIONS OF PROCEDURES, NEC, IN 10/06/2015 DAE KERR R TIP BANDING MACHINE OPERATOR Ot S31.100A UNSP OPN WND ABD WALL, R UPPER Q W/O PEN 10/06/2015 DAE KERR R TIP BANDING MACHINE OPERATOR Ot T81.89XA OTH COMPLICATIONS OF PROCEDURES, NEC, [...] R55 SYNCOPE AND COLLAPSE 11/23/2015 KODY SHEA QA REVIEWER Ot E03.9 HYPOTHYROIDISM, UNSPECIFIED 11/24/2015 KODY SHEA QA REVIEWER Ot E03.9 HYPOTHYROIDISM, UNSPECIFIED 11/24/2015 KODY SHEA QA REVIEWER Ot Z79.899 OTHER ALF (CURRENT) DRUG THERAPY 11/25/2015 EVERTON SHAH MD Ot D15.1 BENIGN NEOPLASM OF HEART 11/25/2015 EVERTON SHAH MD Ot I63.9 CEREBRAL INFARCTION, UNSPECIFIED 11/25/2015 EVERTON SHAH MD Ot I95.1 ORTHOSTATIC HYPOTENSION 11/25/2015 ALYSSA HERNANDEZ EVERTON Bar Ot R07.9 CHEST PAIN, UNSPECIFIED 11/25/2015 ALYSSA HERNANDEZ, EVERTON Bar Ot R55 SYNCOPE AND COLLAPSE 11/25/2015 KODY SHEA QA REVIEWER Ot E03.9 HYPOTHYROIDISM, UNSPECIFIED 11/25/2015 KODY SHEA QA REVIEWER Ot Z79.899 OTHER ALF (CURRENT) DRUG THERAPY 12/15/2015 KODY SHEA QA REVIEWER Ot E03.9 HYPOTHYROIDISM, UNSPECIFIED 12/15/2015 KODY SHEA QA REVIEWER Ot Z79.899 OTHER ALF (CURRENT) DRUG THERAPY 01/28/2016 LASHA RAUSCH MD Ot G51.0 [place] [place] 01/28/2016 LASHA RAUSCH MD Ot I10 ESSENTIAL (PRIMARY) HYPERTENSION 01/28/2016 LASHA RAUSCH MD Ot R29.810 FACIAL WEAKNESS 01/28/2016 LASHA RAUSCH MD Ot Z79.82 VASCULAR PHYSICIAN (CURRENT) USE OF ASPIRIN 01/28/2016 LASHA RAUSCH MD Ot Z79.899 OTHER VASCULAR PHYSICIAN (CURRENT) DRUG THERAPY 01/29/2016 ALYSSA HERNANDEZ, EVERTON Bar Ot D15.1 BENIGN NEOPLASM OF HEART 01/29/2016 EVERTON SHAH MD Ot I63.9 CEREBRAL INFARCTION, UNSPECIFIED 01/29/2016 EVERTON SHAH MD Ot I95.1 ORTHOSTATIC HYPOTENSION 01/29/2016 EVERTON SHAH MD Ot R07.9 CHEST PAIN, UNSPECIFIED 01/29/2016 EVERTON SHAH MD Ot R55 SYNCOPE AND COLLAPSE 01/29/2016 KODY SHEAP Ot E03.9 HYPOTHYROIDISM, UNSPECIFIED 01/29/2016 KODY SHEAP Ot Z79.899 OTHER VASCULAR PHYSICIAN (CURRENT) DRUG THERAPY 01/31/2016 LASHA RAUSCH MD Ot G51.0 [place] 01/31/2016 LASHA RAUSCH MD Ot I10 ESSENTIAL (PRIMARY) HYPERTENSION 01/31/2016 LASHA RAUSCH MD Ot R29.810 FACIAL WEAKNESS 01/31/2016 LASHA RAUSCH MD Ot Z79.82 ALF (CURRENT) USE OF ASPIRIN 01/31/2016 LASHA RAUSCH MD Ot Z79.899 OTHER ALF (CURRENT) DRUG THERAPY 01/07/2017 EVERTON SHAH MD Ot D15.1 BENIGN NEOPLASM OF HEART 01/07/2017 EVERTON SHAH MD Ot I63.9 CEREBRAL INFARCTION, UNSPECIFIED 01/07/2017 EVERTON SHAH MD J Ot I95.1 ORTHOSTATIC HYPOTENSION 01/07/2017 EVERTON SHAH MD J Ot R07.9 CHEST PAIN, UNSPECIFIED 01/07/2017 EVERTON SHAH MD J Ot R55 SYNCOPE AND COLLAPSE 01/07/2017 KODY SHEA QA REVIEWER Ot E03.9 HYPOTHYROIDISM, UNSPECIFIED 01/07/2017 KODY SHEA QA REVIEWER Ot Z79.899 OTHER ALF (CURRENT) DRUG THERAPY [...] R55 SYNCOPE AND COLLAPSE 04/11/2017 KODY SHEA QA REVIEWER Ot E03.9 HYPOTHYROIDISM, UNSPECIFIED 04/11/2017 KODY SHEA QA REVIEWER Ot Z79.899 OTHER VASCULAR PHYSICIAN (CURRENT) DRUG THERAPY 04/11/2017 EVERTON SHAH MD Ot D15.1 BENIGN NEOPLASM OF HEART 04/11/2017 EVERTON SHAH MD J Ot I95.1 ORTHOSTATIC HYPOTENSION 04/11/2017 EVERTON SHAH MD J Ot R07.9 CHEST PAIN, UNSPECIFIED 04/11/2017 EVERTON SHAH MD J Ot R55 SYNCOPE AND COLLAPSE 04/11/2017 EVERTON SHAH MD Ot R60.0 LOCALIZED EDEMA 04/16/2017 MARSHALL SHARMA TIP BANDING MACHINE OPERATOR Ot H53.133 SUDDEN VISUAL LOSS, BILATERAL 04/16/2017 MARSHALL SHARMA TIP BANDING MACHINE OPERATOR Ot H53.133 SUDDEN VISUAL LOSS, BILATERAL 04/18/2017 MARSHALL SHARMA TIP BANDING MACHINE OPERATOR Ot G45.9 TRANSIENT CEREBRAL ISCHEMIC ATTACK, UNSP 04/18/2017 MARSHALL SHARMA TIP BANDING MACHINE OPERATOR Ot H54.62 UNQUALIFIED VISUAL LOSS, LEFT EYE, BENEDICT 05/14/2017 MARSHALL SHARMA TIP BANDING MACHINE OPERATOR Ot G45.9 TRANSIENT CEREBRAL ISCHEMIC ATTACK, UNSP 05/14/2017 MARSHALL SHARMA TIP BANDING MACHINE OPERATOR Ot H54.62 UNQUALIFIED VISUAL LOSS, LEFT EYE, BENEDICT 05/17/2017 MARSHALL SHARMA TIP BANDING MACHINE OPERATOR Ot H54.7 UNSPECIFIED VISUAL LOSS 05/17/2017 MARSHALL SHARMA TIP BANDING MACHINE OPERATOR Ot R47.81 SLURRED SPEECH 06/25/2017 MARSHALL SHARMA TIP BANDING MACHINE OPERATOR Ot H54.7 UNSPECIFIED VISUAL LOSS 06/25/2017 MARSHALL SHARMA TIP BANDING MACHINE OPERATOR Ot R47.81 SLURRED SPEECH 06/25/2017 MARSHALL SHARMA TIP BANDING MACHINE OPERATOR Ot G45.9 TRANSIENT CEREBRAL ISCHEMIC ATTACK, UNSP 06/25/2017 MARSHALL SHARMA TIP BANDING MACHINE OPERATOR Ot H54.62 UNQUALIFIED VISUAL LOSS, LEFT EYE, [...] Ot R60.0 LOCALIZED EDEMA 06/25/2017 MARSHALL SHARMA TIP BANDING MACHINE OPERATOR Ot H54.7 UNSPECIFIED VISUAL LOSS 06/25/2017 MARSHALL SHARMA TIP BANDING MACHINE OPERATOR Ot R47.81 SLURRED SPEECH 06/25/2017 MARSHALL SHARMA TIP BANDING MACHINE OPERATOR Ot G45.9 TRANSIENT CEREBRAL ISCHEMIC ATTACK, UNSP 06/25/2017 MARSHALL SHARMA TIP BANDING MACHINE OPERATOR Ot H54.62 UNQUALIFIED VISUAL LOSS, LEFT EYE, BENEDICT 06/26/2017 EVERTON SHAH MD Ot D15.1 BENIGN NEOPLASM OF HEART 06/26/2017 EVERTON SHAH MD Ot E03.9 HYPOTHYROIDISM, UNSPECIFIED 06/26/2017 EVERTON SHAH MD Ot E78.5 HYPERLIPIDEMIA, UNSPECIFIED 06/26/2017 EVERTON SHAH MD Ot G62.9 POLYNEUROPATHY, UNSPECIFIED 06/26/2017 EVERTON SHAH MD Ot I10 ESSENTIAL (PRIMARY) HYPERTENSION 06/26/2017 EVERTON SHAH MD Ot I63.9 CEREBRAL INFARCTION, UNSPECIFIED 06/26/2017 EVRETON SHAH MD Ot I95.1 ORTHOSTATIC HYPOTENSION 06/27/2017 EVERTON SHAH MD Ot D15.1 BENIGN NEOPLASM OF HEART 06/27/2017 EVERTON SHAH MD Ot E03.9 HYPOTHYROIDISM, UNSPECIFIED 06/27/2017 EVERTON SHAH MD Ot E78.5 HYPERLIPIDEMIA, UNSPECIFIED 06/27/2017 EVERTON SHAH MD Ot G62.9 POLYNEUROPATHY, UNSPECIFIED 06/27/2017 EVERTON SHAH MD Ot I10 ESSENTIAL (PRIMARY) HYPERTENSION 06/27/2017 EVERTON SHAH MD Ot I63.9 CEREBRAL INFARCTION, UNSPECIFIED 06/27/2017 EVERTON SHAH MD Ot I95.1 ORTHOSTATIC HYPOTENSION 10/29/2017 EVERTON SHAH MD Ot D15.1 BENIGN NEOPLASM OF HEART 10/29/2017 EVERTON SHAH MD Ot I63.9 CEREBRAL INFARCTION, UNSPECIFIED 10/29/2017 EVERTON SHAH MD Ot I95.1 ORTHOSTATIC HYPOTENSION 10/29/2017 EVERTON SHAH MD Ot R07.9 CHEST PAIN, UNSPECIFIED 10/29/2017 EVERTON SHAH MD Ot R55 SYNCOPE AND COLLAPSE 10/29/2017 KODY SHEA QA REVIEWER Ot E03.9 HYPOTHYROIDISM, UNSPECIFIED 10/29/2017 KODY SHEA QA REVIEWER Ot Z79.899 OTHER ALF (CURRENT) DRUG THERAPY 10/29/2017 EVERTON SHAH MD Ot D15.1 BENIGN NEOPLASM OF HEART 10/29/2017 EVERTON SHAH MD Ot I95.1 ORTHOSTATIC HYPOTENSION 10/29/2017 EVERTON SHAH MD Ot R07.9 CHEST PAIN, UNSPECIFIED 10/29/2017 EVERTON SHAH MD Ot R55 SYNCOPE AND COLLAPSE 10/29/2017 EVERTON SHAH MD Ot R60.0 LOCALIZED EDEMA 10/29/2017 MARSHALL SHARMA TIP BANDING MACHINE OPERATOR Ot H54.7 UNSPECIFIED VISUAL LOSS 10/29/2017 MARSHALL SHARMA TIP BANDING MACHINE OPERATOR Ot R47.81 SLURRED SPEECH 10/29/2017 MARSHALL SHARMA TIP BANDING MACHINE OPERATOR Ot G45.9 TRANSIENT CEREBRAL ISCHEMIC ATTACK, UNSP 10/29/2017 MARSHALL SHARMA TIP BANDING MACHINE OPERATOR Ot H54.62 UNQUALIFIED VISUAL LOSS, LEFT EYE, BENEDICT 10/30/2017 CHIQUI HERNANDEZ, TERELL Jamison Ot Z01.818 ENCOUNTER FOR OTHER PREPROCEDURAL EXAMIN 10/31/2017 TERELL FLORIAN MD Ot Z01.818 ENCOUNTER FOR OTHER PREPROCEDURAL EXAMIN 10/31/2017 MARSHALL SHARMA APRN Ot G45.9 TRANSIENT CEREBRAL ISCHEMIC ATTACK, UNSP 10/31/2017 MARSHALL SHARMA APRN Ot H54.62 UNQUALIFIED VISUAL LOSS, LEFT EYE, BENEDICT 11/03/2017 TERELL FLORIAN MD Ot G62.9 POLYNEUROPATHY, UNSPECIFIED 11/03/2017 TERELL FLORIAN MD Ot I10 ESSENTIAL (PRIMARY) HYPERTENSION 11/03/2017 TERELL FLORIAN MD Ot K21.9 GASTRO-ESOPHAGEAL REFLUX DISEASE WITHOUT 11/03/2017 TERELL FLORIAN MD Ot K43.9 VENTRAL HERNIA WITHOUT OBSTRUCTION OR GA 11/03/2017 TERELL FLORAIN MD Ot Z11.2 ENCOUNTER FOR SCREENING FOR OTHER BACTER 11/03/2017 CHIQUI HERNANDEZ, TERELL Jamison Ot Z79.82 VASCULAR PHYSICIAN (CURRENT) USE OF ASPIRIN 11/03/2017 TERELL FLORIAN MD Ot Z79.899 OTHER VASCULAR PHYSICIAN (CURRENT) DRUG THERAPY 11/03/2017 TERELL FLORIAN MD, Ot Z86.73 PRSNL HX OF TIA (TIA), AND CEREB INFRC W 11/03/2017 TERELL FLORIAN MD, Ot Z96.659 PRESENCE OF UNSPECIFIED ARTIFICIAL KNEE 11/03/2017 TERELL FLORIAN MD Ot Z98.1 ARTHRODESIS STATUS 11/05/2017 MARSHALL SHARMA APRN Ot H54.7 UNSPECIFIED VISUAL LOSS 11/05/2017 MARSHALL SHARMA APRN Ot R47.81 SLURRED SPEECH 12/02/2017 KODY SHEA QA REVIEWER Ot K59.00 CONSTIPATION, UNSPECIFIED 12/02/2017 KODY SHEA QA REVIEWER Ot Z98.890 OTHER SPECIFIED POSTPROCEDURAL STATES 12/23/2017 KODY SHEAP Ot K59.00 CONSTIPATION, UNSPECIFIED 12/23/2017 KODY SHEAP Ot Z98.890 OTHER SPECIFIED POSTPROCEDURAL STATES Procedures Code Description Performed By Performed On [id number] INTRODUCTION OF ANTI- INFLAMMATORY INTO J 08/11/2015 [...] protein measurement (mass/volume) 0.52 mg /dL 0.00-0.50 [id number] - 04/11/17 14:30 Screening antinuclear antibody (AMADEO) assay by enzyme immunoassay <1: 80 <1:80 Methicillin resistant Staphylococcus aureus (MRSA) screening culture - 06:45 Methicillin resistant Staphylococcus aureus (MRSA) screening culture NEG NRG Complete blood count (CBC) with automated white blood cell (WBC) differential - 11/01/17 07:02 Blood leukocytes automated count (number/volume) 5.3 10*3/uL 4.3-11.0 Blood erythrocytes automated count (number/volume) 3.80 10*6/uL 4.35-5.85 Venous blood hemoglobin measurement (mass/volume) 10.3 g/dL 11.5-16.0 Blood hematocrit (volume fraction) 32 % 35-52 Automated erythrocyte mean corpuscular volume 85 [foz_us] 80-99 Automated erythrocyte mean corpuscular hemoglobin (mass per erythrocyte) 27 pg 25-34 Automated erythrocyte mean corpuscular hemoglobin concentration measurement ( mass/volume) 32 g/dL 32-36 Automated erythrocyte distribution width ratio 14.9 % 10.0-14.5 Automated blood platelet count (count/volume) 278 10*3/uL 130-400 Automated blood platelet mean volume measurement 9.6 [foz_us] 7.4-10.4 Automated blood neutrophils/100 leukocytes 57 % 42-75 Automated blood lymphocytes/100 leukocytes 31 % 12-44 Blood monocytes/100 leukocytes 8 % 0-12 Automated blood eosinophils/100 leukocytes 3 % 0-10 Automated blood basophils/100 leukocytes 1 % 0-10 Blood neutrophils automated count (number/volume) 3.0 10*3 1.8-7.8 Blood lymphocytes automated count (number/volume) 1.6 10*3 1.0-4.0 Blood monocytes automated count (number/volume) 0.4 10*3 0.0-1.0 Automated eosinophil count 0.2 10*3/uL 0.0-0.3 Automated blood basophil count (count/volume) 0.0 10*3/uL 0.0-0.1 Encounters ACCT No. Visit Date/Time Discharge Status Pt. Type Provider Facility Loc./Unit Complaint [id number] 11/29/2017 15:12:00 11/29/2017 23:59:59 CLS Outpatient KODY SHEA [facility] RAD ABD PAIN, CONSTIPATION [id number] 11/01/2017 06:14:00 11/03/2017 11:45:00 DIS Outpatient TERELL FLORIAN MD [facility] SDC VENTRAL HERNIA [id number] 10/30/2017 05:33:00 10/30/2017 16:36:00 DIS Outpatient TERELL FLORIAN MD [facility] PREOP VENTRAL HERNIA [id number] 06/26/2017 09:58:00 06/26/2017 12:37:00 DIS Outpatient EVERTON SHAH MD [facility] CATH CRYPTOGENIC STROKE [id number] 04/17/2017 15:03:00 04/17/2017 23:59:59 CLS Outpatient MARSHALL SHARMA APRN [facility] RAD VISION LOSS,TIA [id number] 04/11/2017 14:15:00 04/11/2017 23:59:59 CLS Outpatient MARSHALL SHARMA APRN [facility] RAD WEAKNESS,VISION CHANGE,SLURRED SPEECH [id number] 01/09/2017 08:48:00 01/09/2017 23:59:59 CLS Outpatient EVERTON SHAH MD [facility] CARD CHEST PAIN R07.9 [id number] 01/28/2016 10:06:00 01/28/2016 12:12:00 DIS Emergency MIRACLE HERNANDEZ, LASHA Shields [facility] ER CONGESTION/R SIDE FACIAL NUMBNESS/SLURRED SPEECH [id number] 11/23/2015 11:00:00 11/23/2015 23:59:59 CLS Outpatient KODY SHEA [facility] LAB CBC,TSH,FREE T4 [id number] 11/03/2015 13:36:00 11/03/2015 16:00:00 DIS Outpatient DAE KERR APRN [facility] WOUNDCARE [id number] 10/06/2015 13:27:00 10/06/2015 23:59:59 CLS Outpatient ALYSSA HERNANDEZ, EVERTON Bar [facility] CARD ATRIAL MYXOMA,CVA,CP [id number] 08/07/2015 16:03:00 08/16/2015 14:55:00 DIS Inpatient DAVID HERNANDEZ, DAYDAY Aguiar [facility] IRF DEBILITY [id number] 06/29/2015 08:33:00 06/30/2015 09:30:00 DIS Outpatient EVERTON SHAH MD [facility] CATH DIZZINES,HYPOTENSION [id number] 06/17/2015 11:21:00 06/17/2015 18:07:00 DIS Emergency MIRACLE HERNANDEZ, LASHA Shields [facility] ER CHEST PAIN/LOW BP
[2018-02-24] MEDS ORDERED: ASPIRIN 81 MG CHEW (CHILDREN'S ASA) PO ONE (14:30)
--- NOTE | 2018-02-24 14:43 | Diagnostic Imaging Report ---
INDICATION: Chest pain. Portable chest at 02:34 p.m. FINDINGS: Heart size and pulmonary vascularity are normal. Lungs are clear. There are no effusions or pneumothoraces. There is a loop recorder projecting over the left side of the chest. There are postop changes from a median sternotomy. IMPRESSION: Postsurgical changes in the chest. No acute abnormality seen. Dictated by: Dictated on workstation # [id number]
[2018-02-24 14:51] LABS: BASOPHILS # (AUTO) 0.1 10^3/uL (0.0-0.1); BASOPHILS % (AUTO) 1 % (0-10); EOSINOPHILS # (AUTO) 0.1 10^3/uL (0.0-0.3); EOSINOPHILS % (AUTO) 1 % (0-10); HEMATOCRIT 34 % (35-52); HEMOGLOBIN 10.5 G/DL (11.5-16.0); LYMPHOCYTES # (AUTO) 2.2 X 10^3 (1.0-4.0); LYMPHOCYTES % (AUTO) 28 % (12-44); MEAN CORPUSCULAR HEMOGLOBIN 24 PG (25-34); MEAN CORPUSCULAR HGB CONC 31 G/DL (32-36); MEAN CORPUSCULAR VOLUME 78 FL (80-99); MEAN PLATELET VOLUME 10.7 FL (7.4-10.4); MONOCYTES # (AUTO) 0.4 X 10^3 (0.0-1.0); MONOCYTES % (AUTO) 6 % (0-12); NEUTROPHILS % (AUTO) 65 % (42-75); PLATELET COUNT 379 10^3/uL (130-400); RED BLOOD COUNT 4.37 10^6/uL (4.35-5.85); RED CELL DISTRIBUTION WIDTH 15.8 % (10.0-14.5); WHITE BLOOD COUNT 7.7 10^3/uL (4.3-11.0)
[2018-02-24 14:59] LABS: INR 1.6 (0.8-1.4); PROTHROMBIN TIME PATIENT 18.8 SEC (12.2-14.7)
[2018-02-24 15:09] LABS: ALANINE AMINOTRANSFERASE 11 U/L (0-55); ALBUMIN 4.4 GM/DL (3.2-4.5); ALKALINE PHOSPHATASE 65 U/L (40-136); BILIRUBIN,TOTAL 0.5 MG/DL (0.1-1.0); BUN/CREATININE RATIO 15; CALCIUM 9.5 MG/DL (8.5-10.1); CARBON DIOXIDE 25 MMOL/L (21-32); CHLORIDE 102 MMOL/L (98-107); CREATININE SERUM 1.06 MG/DL (0.60-1.30); GFR ESTIMATED 50; GLUCOSE 85 MG/DL (70-105); POTASSIUM 3.2 MMOL/L (3.6-5.0); SODIUM 141 MMOL/L (135-145); TOTAL PROTEIN 8.6 GM/DL (6.4-8.2)
[2018-02-24 15:21] LABS: MYOGLOBIN SERUM 53.5 NG/ML (10.0-92.0)
--- NOTE | 2018-02-24 15:27 | ED Chest Pain ---
General Chief Complaint: Chest Wall/Rib Pain Stated Complaint: CHEST TIGHTNESS;SOB Nursing Triage Note: PT STATES THAT SHE HAS BEEN EXPERIENCING CHEST TIGHTNESS UPON EXERTION AND SOB AFTER EATING FOR THE LAST MONTH, TODAY CONTACTED HER PROVIDER AND WAS ASKED TO REPORT TO THE ED. Nursing Sepsis Screen: No Definite Risk Source: patient Exam Limitations: no limitations History of Present Illness Date Seen by Provider: Feb 24, 2018 Time Seen by Provider: 14:18 Initial Comments Here with report of intermittent chest pain which she describes as tightness. This is central and nonradiating and usually associated with activity such as washing dishes or walking. It is better with rest. Also noted to have runs of ventricular tachycardia noted on event monitor. She apparently has had a couple episodes of this. Denies nausea, vomiting, weakness or diarrhea. Timing/Duration: 1 week Severity/Quality: mild, tightness Location: central Radiation: no radiation Activities at Onset: none Prior CP/Workup: echocardiography, other (heart surgery) ASA po CELL RELINER: No NTG SL CELL RELINER: No Associated Symptoms: No abdominal pain, No back pain, No fever/chills, No nausea/vomiting, No shortness of breath, No weakness Allergies and Home Medications Allergies Coded Allergies: Sulfa (Sulfonamide Antibiotics) (Unverified Allergy, Intermediate, Rash, ) sulfamethoxazole (Unverified Allergy, Intermediate, rash, 06/17/15) trimethoprim (Unverified Allergy, Intermediate, rash, 06/17/15) hydrocodone (Unverified Allergy, Unknown, 06/17/15) Home Medications Aspirin/Acetaminophen/Caffeine 1 Each Tablet, 2 EACH PO BID, (Reported) Cyanocobalamin 1,000 Mcg/Ml Inj, 1,000 MCG IJ MONTHLY, (Reported) Gabapentin 300 Mg Capsule, 300 MG PO TID, (Reported) Hydrochlorothiazide 25 Mg Tablet, 25 MG PO DAILY, (Reported) Lansoprazole 30 Mg Capsule.dr, 30 MG PO DAILY, (Reported) Levothyroxine Sodium 50 Mcg Tablet, 50 MCG PO DAILY, (Reported) Polyethylene Glycol 3350 17 Gm Powd.pack, 17 GM PO PRN, (Reported) Tramadol HCl 50 Mg Tablet, 50 MG PO Q12H PRN for PAIN-MILD TO MODERATE Prescribed by: TERELL FLORIAN on 11/01/17 1014 Patient Home Medication List Home Medication List Reviewed: Yes Review of Systems Review of Systems Constitutional: see HPI; No chills, No fever EENTM: No Symptoms Reported Respiratory: No Symptoms Reported Cardiovascular: See HPI, Irregular Heart Rate; Denies Syncope Gastrointestinal: No Symptoms Reported Genitourinary: No Symptoms Reported All Other Systems Reviewed Negative Unless Noted: Yes Past Pffgmuq-Lwyfmk-Yuklpq Hx Past Med/Social Hx: Reviewed Nursing Past Med/Soc Hx Patient Social History Alcohol Use: Denies Use Recreational Drug Use: No Smoking Status: Never a Smoker Recent Foreign Travel: No Contact w/Someone Who Travel: No Recent Infectious Disease Expo: No Recent Hopitalizations: No Immunizations Up To Date Tetanus Booster (TDap): Unknown PED Vaccines UTD: No Date of Pneumonia Vaccine: Feb 05, 2015 Date of Influenza Vaccine: Feb 05, 2015 Seasonal Allergies Seasonal Allergies: No Past Medical History 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 No Pertinent Family Hx Physical Exam Vital Signs Vital Signs - First Documented 02/24/18 14:14 Temp 98.2 Pulse 81 Resp 20 B/P (MAP) 144/75 (98) Pulse Ox 95 O2 Delivery Room Air Capillary Refill : Less Than 3 Seconds Height, Weight, BMI Height: 5'3.00" Weight: 135lbs. 0.1oz. 61.457466im; 23.9 BMI Method:Stated General Appearance: No Apparent Distress, WD/WN HEENT: PERRL/EOMI, Pharynx Normal Neck: Non Tender, Supple Respiratory: Lungs Clear, Normal Breath Sounds Cardiovascular: Regular Rate, Rhythm, No Murmur Gastrointestinal: Non Tender, Soft Extremity: Normal Range of Motion, Non Tender Neurologic/Psychiatric: Alert, Oriented x3 Skin: Normal Color, Warm/Dry Progress/Results/Core Measures Results/Orders Lab Results Laboratory Tests Test 02/24/18 14:17 Range/Units White Blood Count 7.7 4.3-11.0 10^3/uL Red Blood Count 4.37 4.35-5.85 10^6/uL Hemoglobin 10.5 L 11.5-16.0 G/DL Hematocrit 34 L 35-52 % Mean Corpuscular Volume 78 L 80-99 FL Mean Corpuscular Hemoglobin 24 L 25-34 PG Mean Corpuscular Hemoglobin Concent 31 L 32-36 G/DL Red Cell Distribution Width 15.8 H 10.0-14.5 % Platelet Count 379 130-400 10^3/uL Mean Platelet Volume 10.7 H 7.4-10.4 FL Neutrophils (%) (Auto) 65 42-75 % Lymphocytes (%) (Auto) 28 12-44 % Monocytes (%) (Auto) 6 0-12 % Eosinophils (%) (Auto) 1 0-10 % Basophils (%) (Auto) 1 0-10 % Neutrophils # (Auto) 5.0 1.8-7.8 X 10^3 Lymphocytes # (Auto) 2.2 1.0-4.0 X 10^3 Monocytes # (Auto) 0.4 0.0-1.0 X 10^3 Eosinophils # (Auto) 0.1 0.0-0.3 10^3/uL Basophils # (Auto) 0.1 0.0-0.1 10^3/uL Prothrombin Time 18.8 H 12.2-14.7 SEC INR Comment 1.6 H 0.8-1.4 Activated Partial Thromboplast Time 41 H 24-35 SEC D-Dimer 1.56 H 0.00-0.49 UG/ML Sodium Level 141 135-145 MMOL/L Potassium Level 3.2 L 3.6-5.0 MMOL/L Chloride Level 102 98-107 MMOL/L Carbon Dioxide Level 25 21-32 MMOL/L Anion Gap 14 5-14 MMOL/L Blood Urea Nitrogen 16 7-18 MG/DL Creatinine 1.06 0.60-1.30 MG/DL Estimat Glomerular Filtration Rate 50 BUN/Creatinine Ratio 15 Glucose Level 85 70-105 MG/DL Calcium Level 9.5 8.5-10.1 MG/DL Corrected Calcium 9.2 8.5-10.1 MG/DL Magnesium Level 2.0 1.8-2.4 MG/DL Total Bilirubin 0.5 0.1-1.0 MG/DL Aspartate Amino Transf (AST/SGOT) 20 5-34 U/L Alanine Aminotransferase (ALT/SGPT) 11 0-55 U/L Alkaline Phosphatase 65 40-136 U/L Myoglobin 53.5 10.0-92.0 NG/ML Troponin I < 0.30 <0.30 NG/ML B-Type Natriuretic Peptide 90.2 <100.0 PG/ML Total Protein 8.6 H 6.4-8.2 GM/DL Albumin 4.4 3.2-4.5 GM/DL My Orders Orders - JAXON DONAHUE MD Cbc With Automated Diff (02/24/18 14:18) Magnesium (02/24/18 14:18) Chest 1 View, Ap/Pa Only (02/24/18 14:18) Ekg Tracing (02/24/18 14:18) Cardiac Profile 1 (02/24/18 14:18) Comprehensive Metabolic Panel (02/24/18 14:18) Myoglobin Serum (02/24/18 14:18) Protime With Inr (02/24/18 14:18) Partial Thromboplastin Time (02/24/18 14:18) O2 (02/24/18 14:18) Monitor-Rhythm Ecg Trace Only (02/24/18 14:18) Lipid Panel (02/25/18 06:00) Aspirin Chewable Tablet (Baby Aspirin Ch (02/24/18 14:30) Saline Lock/Iv-Start (02/24/18 14:18) BNP (02/24/18 14:18) Fibrin Degradation Products (02/24/18 14:18) Ct Angio Chest W (02/24/18 15:37) Ns Iv 1000 Ml (Sodium Chloride 0.9%) (02/24/18 15:37) Iohexol Injection (Omnipaque 350 Mg/Ml 1 (02/24/18 15:45) Contrast Received (Contrast Received) (02/24/18 15:45) Ns (Ivpb) (Sodium Chloride 0.9% Ivpb Bag (02/24/18 15:45) Ekg Tracing (02/24/18 16:15) Medications Given in ED Current Medications Medications Dose Ordered Sig/Taco Route Start Time Stop Time Status Last Admin Dose Admin Aspirin 324 mg ONCE ONCE PO 02/24/18 14:30 02/24/18 14:31 DC 02/24/18 14:33 324 MG Iohexol 100 ml ONCE ONCE IV 02/24/18 15:45 02/24/18 15:52 DC 02/24/18 15:54 100 ML Sodium Chloride 100 ml ONCE ONCE IV 02/24/18 15:45 02/24/18 15:52 DC 02/24/18 15:54 80 ML Vital Signs/I&O 02/24/18 14:14 Temp 98.2 Pulse 81 Resp 20 B/P (MAP) 144/75 (98) Pulse Ox 95 O2 Delivery Room Air Blood Pressure Mean: 98 Progress Progress Note : Progress Note Seen and evaluated. IV, labs, EKG and chest x-ray ordered. ASA 324 mg by mouth ordered. Monitor patient. D-dimer elevated so CT angiogram of the chest ordered. Normal saline 1 L bolus afterwards. 1616: I did discuss the case with Dr. Baugh and we'll have reviewed the findings. We will observe overnight do to paroxysmal runs of V. tach noted on her event monitor. All the findings and concerns were discussed with the patient and family who agree with plan. Admit, observation status. Initial ECG Impression Date: Feb 24, 2018 Initial ECG Impression Time: 14:17 Initial ECG Rate: 79 Initial ECG Rhythm: Normal Sinus Comment Sinus rhythm with left axis deviation. No evidence of ST elevation NV. Similar to June,. Interpreted by me. Diagnostic Imaging Diagonstic Imaging: Xray Plain Films/CT/US/NM/MRI: chest Comments [facility] [place], [place] NAME: XIOMARA BLUNT [facility] REC#: [id number] PT STATUS: REG ER : 1940 PHYSICIAN: JAXON DONAHUE MD ADMIT DATE: 02/24/18/ER Draft Date of Exam:02/24/18 CHEST 1 VIEW, AP/PA ONLY INDICATION: Chest pain. Portable chest at 02:34 p.m. FINDINGS: Heart size and pulmonary vascularity are normal. Lungs are clear. There are no effusions or pneumothoraces. There is a loop recorder projecting over the left side of the chest. There are postop changes from a median sternotomy. IMPRESSION: Postsurgical changes in the chest. No acute abnormality seen. Dictated on workstation # [id number] Dict: 02/24/18 1438 Trans: 02/24/18 1442 [id number] Interpreted by: JAXON ZAZUETA MD Electronically signed by: Juliannagonsmariano Imaging: CT Plain Films/CT/US/NM/MRI: chest Comments NAME: XIOMARA BLUNT [facility] REC#: [id number] PT STATUS: REG ER : 1940 PHYSICIAN: JAXON DONAHUE MD ADMIT DATE: 02/24/18/ER Signed Date of Exam: 02/24/18 CT ANGIO CHEST W PROCEDURE: CT angiography of the chest with contrast. TECHNIQUE: Multiple contiguous axial images were obtained through the chest after uneventful bolus administration of intravenous contrast. 2D reconstructed CTA MIP acquisitions were also performed. INDICATION: Chest tightness and shortness of breath COMPARISON: 06/17/2015 FINDINGS: Vasculature: No pulmonary emboli. No CT evidence of pulmonary hypertension or right ventricular strain. Thoracic aorta is normal in caliber. No aortic dissection or pseudoaneurysm. Heart and mediastinum: Visualized aspects of the thyroid are normal. No supraclavicular, axillary, or intra-thoracic lymphadenopathy. The heart is normal in size without pericardial effusion. Pleura: No pleural effusion or pneumothorax. Lungs and airway: No endoluminal lesion in the trachea or central bronchi. No pulmonary mass, nodule or consolidation. Upper abdomen: Allowing for the phase of contrast, no acute abnormality in the upper abdomen is seen. Cholecystectomy. Musculoskeletal: No concerning osseous lesion. IMPRESSION: 1. No acute cardiopulmonary process. Specifically, no pulmonary emboli or acute aortic syndrome. Dictated by: Dictated on workstation # [id number] Dict: 02/24/18 1613 Trans: 02/24/18 1616 Interpreted by: CORDELL GUERRA MD Electronically signed by: CORDELL GUERRA MD 02/24/18 1616 Departure Communication (Admissions) Time/Spoke to Admitting Phy: 16:16 Impression Primary Impression: Paroxysmal ventricular tachycardia Additional Impression: Chest pain Qualified Codes: R07.9 - Chest pain, unspecified Disposition: ADMITTED INPATIENT Condition: Stable Admissions Decision to Admit Reason: Admit from ER (General) Decision to Admit/Date: Feb 24, 2018 Time/Decision to Admit Time: 16:16 Departure-Patient Inst. Referrals: MAYUR ADAME MD (PCP/Family) Primary Care Physician JAXON DONAHUE MD Feb 24, 2018 15:27
[2018-02-24] MEDS ORDERED: NS IV 1000 ML 1,000 ML IV ONE (15:37)
[2018-02-24] MEDS ORDERED: IOHEXOL 350 MG/ML 100 ML (OMNIPAQUE 350) VIAL IV ONE (15:45)
[2018-02-24] MEDS ORDERED: NS 100 ML (IVPB) BAG IV ONE (15:45)
[2018-02-24] MEDS ORDERED: RECEIVED CONTRAST (Hold Metformin) IV SCH (15:45)
--- NOTE | 2018-02-24 16:18 | Diagnostic Imaging Report ---
PROCEDURE: CT angiography of the chest with contrast. TECHNIQUE: Multiple contiguous axial images were obtained through the chest after uneventful bolus administration of intravenous contrast. 2D reconstructed CTA MIP acquisitions were also performed. INDICATION: Chest tightness and shortness of breath COMPARISON: 06/17/2015 FINDINGS: Vasculature: No pulmonary emboli. No CT evidence of pulmonary hypertension or right ventricular strain. Thoracic aorta is normal in caliber. No aortic dissection or pseudoaneurysm. Heart and mediastinum: Visualized aspects of the thyroid are normal. No supraclavicular, axillary, or intra-thoracic lymphadenopathy. The heart is normal in size without pericardial effusion. Pleura: No pleural effusion or pneumothorax. Lungs and airway: No endoluminal lesion in the trachea or central bronchi. No pulmonary mass, nodule or consolidation. Upper abdomen: Allowing for the phase of contrast, no acute abnormality in the upper abdomen is seen. Cholecystectomy. Musculoskeletal: No concerning osseous lesion. IMPRESSION: 1. No acute cardiopulmonary process. Specifically, no pulmonary emboli or acute aortic syndrome. Dictated by: Dictated on workstation # [id number]
--- OUTSIDE RECORDS SUMMARY | 2018-02-24 17:07 | XMS REPORT | Continuity of Care Document ---
Author Author [facility] Organization [facility] Address Unknown Phone Unavailable Allergies Active Description Code Type Severity Reaction Onset Reported/Identified Relationship to Patient Clinical Status Yes Sulfa (Sulfonamide Antibiotics) [id number] Drug Allergy Moderate Rash 06/16 Yes sulfamethoxazole [id number] Drug Allergy Moderate rash 06/17/2015 Yes trimethoprim [id number] Drug Allergy Moderate rash 06/17/2015 Yes LORACET LORACET Mild n/v 06/17/2015 Yes acetaminophen [id number] Drug Allergy Unknown N/A 06/17/2015 Yes hydrocodone [id number] Drug Allergy Unknown N/A 06/17/2015 Medications There [...] 06/17/2015 LASHA RAUSCH MD Ot Z79.899 OTHER [facility] (CURRENT) DRUG THERAPY 06/20/2015 LASHA RAUSCH MD Ot I10 ESSENTIAL (PRIMARY) HYPERTENSION 06/20/2015 LASHA RAUSCH MD Ot I95.1 ORTHOSTATIC HYPOTENSION 06/20/2015 LASHA RAUSCH MD Ot K57.90 DVRTCLOS OF INTEST, PART UNSP, W/O PERF 06/20/2015 LASHA RAUSCH MD Ot R93.1 ABNORMAL FINDINGS ON DX IMAGING OF HEART 06/20/2015 MIRACLE HERNANDEZ, LASHA Shields Ot Z79.899 OTHER [facility] (CURRENT) DRUG THERAPY 06/30/2015 EVERTON SHAH MD [...] 06/30/2015 EVERTON SHAH MD Ot Z79.899 OTHER [facility] (CURRENT) DRUG THERAPY 07/18/2015 EVERTON SHAH MD [...] 07/18/2015 EVERTON SHAH MD Ot Z79.899 OTHER [facility] (CURRENT) DRUG THERAPY 08/16/2015 DAVID HERNANDEZ DAYDAY [...] OF OTHER BENIGN NEOPLAS 09/15/2015 DAE KERR PARKS AND RECREATION MANAGER Ot S31.100A UNSP OPN WND ABD WALL, R UPPER Q W/O PEN 09/15/2015 DAE KERR R PARKS AND RECREATION MANAGER Ot T81.89XA OTH COMPLICATIONS OF PROCEDURES, NEC, IN 09/26/2015 DAE KERR R PARKS AND RECREATION MANAGER Ot S31.100A UNSP OPN WND ABD WALL, R UPPER Q W/O PEN 09/26/2015 DAE KERR R PARKS AND RECREATION MANAGER Ot T81.89XA OTH COMPLICATIONS OF PROCEDURES, NEC, IN 10/06/2015 DAE KERR R PARKS AND RECREATION MANAGER Ot S31.100A UNSP OPN WND ABD WALL, R UPPER Q W/O PEN 10/06/2015 DAE KERR R PARKS AND RECREATION MANAGER Ot T81.89XA OTH COMPLICATIONS OF PROCEDURES, NEC, [...] R55 SYNCOPE AND COLLAPSE 11/23/2015 KODY SHEA BOARDER MACHINE Ot E03.9 HYPOTHYROIDISM, UNSPECIFIED 11/24/2015 KODY SHEA BOARDER MACHINE Ot E03.9 HYPOTHYROIDISM, UNSPECIFIED 11/24/2015 KODY SHEA BOARDER MACHINE Ot Z79.899 OTHER [facility] (CURRENT) DRUG THERAPY 11/25/2015 EVERTON SHAH MD Ot D15.1 BENIGN NEOPLASM OF HEART 11/25/2015 EVERTON SHAH MD Ot I63.9 CEREBRAL INFARCTION, UNSPECIFIED 11/25/2015 EVERTON SHAH MD Ot I95.1 ORTHOSTATIC HYPOTENSION 11/25/2015 ALYSSA HERNANDEZ EVERTON Bar Ot R07.9 CHEST PAIN, UNSPECIFIED 11/25/2015 ALYSSA HERNANDEZ, EVERTON Bar Ot R55 SYNCOPE AND COLLAPSE 11/25/2015 KODY SHEA BOARDER MACHINE Ot E03.9 HYPOTHYROIDISM, UNSPECIFIED 11/25/2015 KODY SHEA BOARDER MACHINE Ot Z79.899 OTHER [facility] (CURRENT) DRUG THERAPY 12/15/2015 KODY SHEA BOARDER MACHINE Ot E03.9 HYPOTHYROIDISM, UNSPECIFIED 12/15/2015 KODY SHEA BOARDER MACHINE Ot Z79.899 OTHER [facility] (CURRENT) DRUG THERAPY 01/28/2016 LASHA RAUSCH MD Ot G51.0 [place] 01/28/2016 LASHA RAUSCH MD Ot I10 ESSENTIAL (PRIMARY) HYPERTENSION 01/28/2016 LASHA RAUSCH MD Ot R29.810 FACIAL WEAKNESS 01/28/2016 LASHA RAUSCH MD Ot Z79.82 MANAGER CLINICAL (CURRENT) USE OF ASPIRIN 01/28/2016 LASHA RAUSCH MD Ot Z79.899 OTHER MANAGER CLINICAL (CURRENT) DRUG THERAPY 01/29/2016 ALYSSA HERNANDEZ, EVERTON Bar Ot D15.1 BENIGN NEOPLASM OF HEART 01/29/2016 EVERTON SHAH MD Ot I63.9 CEREBRAL INFARCTION, UNSPECIFIED 01/29/2016 EVERTON SHAH MD Ot I95.1 ORTHOSTATIC HYPOTENSION 01/29/2016 EVERTON SHAH MD Ot R07.9 CHEST PAIN, UNSPECIFIED 01/29/2016 EVERTON SHAH MD Ot R55 SYNCOPE AND COLLAPSE 01/29/2016 KODY SHEAP Ot E03.9 HYPOTHYROIDISM, UNSPECIFIED 01/29/2016 KODY SHEAP Ot Z79.899 OTHER MANAGER CLINICAL (CURRENT) DRUG THERAPY 01/31/2016 LASHA RAUSCH MD Ot G51.0 [place] 01/31/2016 LASHA RAUSCH MD Ot I10 ESSENTIAL (PRIMARY) HYPERTENSION 01/31/2016 LASHA RAUSCH MD Ot R29.810 FACIAL WEAKNESS 01/31/2016 LASHA RAUSCH MD Ot Z79.82 [facility] (CURRENT) USE OF ASPIRIN 01/31/2016 LASHA RAUSCH MD Ot Z79.899 OTHER [facility] (CURRENT) DRUG THERAPY 01/07/2017 EVERTON SHAH MD Ot D15.1 BENIGN NEOPLASM OF HEART 01/07/2017 EVERTON SHAH MD Ot I63.9 CEREBRAL INFARCTION, UNSPECIFIED 01/07/2017 EVERTON SHAH MD J Ot I95.1 ORTHOSTATIC HYPOTENSION 01/07/2017 EVERTON SHAH MD J Ot R07.9 CHEST PAIN, UNSPECIFIED 01/07/2017 EVERTON SHAH MD J Ot R55 SYNCOPE AND COLLAPSE 01/07/2017 KODY SHEA BOARDER MACHINE Ot E03.9 HYPOTHYROIDISM, UNSPECIFIED 01/07/2017 KODY SHEA BOARDER MACHINE Ot Z79.899 OTHER [facility] (CURRENT) DRUG THERAPY 01/29/2017 EVERTON SHAH MD [...] R55 SYNCOPE AND COLLAPSE 04/11/2017 KODY SHEA BOARDER MACHINE Ot E03.9 HYPOTHYROIDISM, UNSPECIFIED 04/11/2017 KODY SHEA BOARDER MACHINE Ot Z79.899 OTHER MANAGER CLINICAL (CURRENT) DRUG THERAPY 04/11/2017 EVERTON SHAH MD Ot D15.1 BENIGN NEOPLASM OF HEART 04/11/2017 EVERTON SHAH MD J Ot I95.1 ORTHOSTATIC HYPOTENSION 04/11/2017 EVERTON SHAH MD J Ot R07.9 CHEST PAIN, UNSPECIFIED 04/11/2017 EVERTON SHAH MD J Ot R55 SYNCOPE AND COLLAPSE 04/11/2017 EVERTON SHAH MD Ot R60.0 LOCALIZED EDEMA 04/16/2017 MARSHALL SHARMA PARKS AND RECREATION MANAGER Ot H53.133 SUDDEN VISUAL LOSS, BILATERAL 04/16/2017 MARSHALL SHARMA PARKS AND RECREATION MANAGER Ot H53.133 SUDDEN VISUAL LOSS, BILATERAL 04/18/2017 MARSHALL SHARMA PARKS AND RECREATION MANAGER Ot G45.9 TRANSIENT CEREBRAL ISCHEMIC ATTACK, UNSP 04/18/2017 MARSHALL SHARMA PARKS AND RECREATION MANAGER Ot H54.62 UNQUALIFIED VISUAL LOSS, LEFT EYE, BENEDICT 05/14/2017 MARSHALL SHARMA PARKS AND RECREATION MANAGER Ot G45.9 TRANSIENT CEREBRAL ISCHEMIC ATTACK, UNSP 05/14/2017 MARSHALL SHARMA PARKS AND RECREATION MANAGER Ot H54.62 UNQUALIFIED VISUAL LOSS, LEFT EYE, BENEDICT 05/17/2017 MARSHALL SHARMA PARKS AND RECREATION MANAGER Ot H54.7 UNSPECIFIED VISUAL LOSS 05/17/2017 MARSHALL SHARMA PARKS AND RECREATION MANAGER Ot R47.81 SLURRED SPEECH 06/25/2017 MARSHALL SHARMA PARKS AND RECREATION MANAGER Ot H54.7 UNSPECIFIED VISUAL LOSS 06/25/2017 MARSHALL SHARMA PARKS AND RECREATION MANAGER Ot R47.81 SLURRED SPEECH 06/25/2017 MARSHALL SHARMA PARKS AND RECREATION MANAGER Ot G45.9 TRANSIENT CEREBRAL ISCHEMIC ATTACK, UNSP 06/25/2017 MARSHALL SHARMA PARKS AND RECREATION MANAGER Ot H54.62 UNQUALIFIED VISUAL LOSS, LEFT EYE, [...] UNSPECIFIED 06/25/2017 KODY SHEA Ot Z79.899 OTHER [facility] (CURRENT) DRUG THERAPY 06/25/2017 EVERTON SHAH MD Ot D15.1 BENIGN NEOPLASM OF HEART 06/25/2017 EVERTON SHAH MD Ot I95.1 ORTHOSTATIC HYPOTENSION 06/25/2017 EVERTON SHAH MD Ot R07.9 CHEST PAIN, UNSPECIFIED 06/25/2017 EVERTON SHAH MD Ot R55 SYNCOPE AND COLLAPSE 06/25/2017 EVERTON SHAH MD Ot R60.0 LOCALIZED EDEMA 06/25/2017 MARSHALL SHARMA PARKS AND RECREATION MANAGER Ot H54.7 UNSPECIFIED VISUAL LOSS 06/25/2017 MARSHALL SHARMA PARKS AND RECREATION MANAGER Ot R47.81 SLURRED SPEECH 06/25/2017 MARSHALL SHARMA PARKS AND RECREATION MANAGER Ot G45.9 TRANSIENT CEREBRAL ISCHEMIC ATTACK, UNSP 06/25/2017 MARSHALL SHARMA PARKS AND RECREATION MANAGER Ot H54.62 UNQUALIFIED VISUAL LOSS, LEFT EYE, BENEDICT 06/26/2017 EVERTON SHAH MD Ot D15.1 BENIGN NEOPLASM OF HEART 06/26/2017 EVERTON SHAH MD Ot E03.9 HYPOTHYROIDISM, UNSPECIFIED 06/26/2017 EVERTON SHAH MD Ot E78.5 HYPERLIPIDEMIA, UNSPECIFIED 06/26/2017 EVERTON SHAH MD Ot G62.9 POLYNEUROPATHY, UNSPECIFIED 06/26/2017 EVERTON SHAH MD Ot I10 ESSENTIAL (PRIMARY) HYPERTENSION 06/26/2017 EVERTON SHAH MD Ot I63.9 CEREBRAL INFARCTION, UNSPECIFIED 06/26/2017 EVERTON SHAH MD Ot I95.1 ORTHOSTATIC HYPOTENSION 06/27/2017 [...] R55 SYNCOPE AND COLLAPSE 10/29/2017 KODY SHEA BOARDER MACHINE Ot E03.9 HYPOTHYROIDISM, UNSPECIFIED 10/29/2017 KODY SHEA BOARDER MACHINE Ot Z79.899 OTHER [facility] (CURRENT) DRUG THERAPY 10/29/2017 EVERTON SHAH MD Ot D15.1 BENIGN NEOPLASM OF HEART 10/29/2017 EVERTON SHAH MD Ot I95.1 ORTHOSTATIC HYPOTENSION 10/29/2017 EVERTON SHAH MD Ot R07.9 CHEST PAIN, UNSPECIFIED 10/29/2017 EVERTON SHAH MD Ot R55 SYNCOPE AND COLLAPSE 10/29/2017 EVERTON SHAH MD Ot R60.0 LOCALIZED EDEMA 10/29/2017 MARSHALL SHARMA PARKS AND RECREATION MANAGER Ot H54.7 UNSPECIFIED VISUAL LOSS 10/29/2017 MARSHALL SHARMA PARKS AND RECREATION MANAGER Ot R47.81 SLURRED SPEECH 10/29/2017 MARSHALL SHARMA PARKS AND RECREATION MANAGER Ot G45.9 TRANSIENT CEREBRAL ISCHEMIC ATTACK, UNSP 10/29/2017 MARSHALL SHARMA PARKS AND RECREATION MANAGER Ot H54.62 UNQUALIFIED VISUAL LOSS, LEFT EYE, [...] HERNIA WITHOUT OBSTRUCTION OR GA 11/03/2017 TERELL FLORIAN MD Ot Z11.2 ENCOUNTER FOR SCREENING FOR OTHER BACTER 11/03/2017 CHIQUI HERNANDEZ, TERELL Jamison Ot Z79.82 MANAGER CLINICAL (CURRENT) USE OF ASPIRIN 11/03/2017 TERELL FLORIAN MD Ot Z79.899 OTHER MANAGER CLINICAL (CURRENT) DRUG THERAPY 11/03/2017 TERELL FLORIAN MD, Ot Z86.73 PRSNL HX OF TIA (TIA), AND CEREB INFRC W 11/03/2017 TERELL FLORIAN MD, Ot Z96.659 PRESENCE OF UNSPECIFIED ARTIFICIAL KNEE 11/03/2017 TERELL FLORIAN MD Ot Z98.1 ARTHRODESIS STATUS 11/05/2017 MARSHALL SHARMA APRN Ot H54.7 UNSPECIFIED VISUAL LOSS 11/05/2017 MARSHALL SHARMA APRN Ot R47.81 SLURRED SPEECH 12/02/2017 KODY SHEA BOARDER MACHINE Ot K59.00 CONSTIPATION, UNSPECIFIED 12/02/2017 KODY SHEA BOARDER MACHINE Ot Z98.890 OTHER SPECIFIED POSTPROCEDURAL STATES 12/23/2017 KODY SHEAP Ot K59.00 CONSTIPATION, UNSPECIFIED 12/23/2017 KODY SHEAP Ot Z98.890 OTHER SPECIFIED POSTPROCEDURAL STATES Procedures Code Description Performed By Performed On 5U4G12G INTRODUCTION OF ANTI- INFLAMMATORY INTO J 08/11/2015 [...] protein measurement (mass/volume) 0.52 mg /dL 0.00-0.50 [id number] - 04/11/17 14:30 Screening antinuclear antibody (AMADEO) [...] Status Pt. Type Provider Facility Loc./Unit Complaint [id number] 11/29/2017 15:12:00 11/29/2017 23:59:59 CLS Outpatient KODY SHEA [facility] RAD ABD PAIN, CONSTIPATION [id number] 11/01/2017 06:14:00 11/03/2017 11:45:00 DIS Outpatient TERELL FLORIAN MD [facility] SDC VENTRAL HERNIA [id number] 10/30/2017 05:33:00 10/30/2017 16:36:00 DIS Outpatient TERELL FLORIAN MD [facility] PREOP VENTRAL HERNIA [id number] 06/26/2017 09:58:00 06/26/2017 12:37:00 DIS Outpatient EVERTON SHAH MD [facility] CATH CRYPTOGENIC STROKE [id number] 04/17/2017 15:03:00 04/17/2017 23:59:59 CLS Outpatient MARSHALL SHARMA APRN [facility] RAD VISION LOSS,TIA [id number] 04/11/2017 14:15:00 04/11/2017 23:59:59 CLS Outpatient MARSHALL SHARMA APRN [facility] RAD WEAKNESS,VISION CHANGE,SLURRED SPEECH [id number] 01/09/2017 08:48:00 01/09/2017 23:59:59 CLS Outpatient EVERTON SHAH MD [facility] CARD CHEST PAIN R07.9 [id number] 01/28/2016 10:06:00 01/28/2016 12:12:00 DIS Emergency MIRACLE HERNANDEZ, LASHA Shields [facility] ER CONGESTION/R SIDE FACIAL NUMBNESS/SLURRED SPEECH [id number] 11/23/2015 11:00:00 11/23/2015 23:59:59 CLS Outpatient KODY SHEA [facility] LAB CBC,TSH,FREE T4 [id number] 11/03/2015 13:36:00 11/03/2015 16:00:00 DIS Outpatient DAE KERR APRN [facility] WOUNDCARE [id number] 10/06/2015 13:27:00 10/06/2015 23:59:59 CLS Outpatient ALYSSA HERNANDEZ, EVERTON Bar [facility] CARD ATRIAL MYXOMA,CVA,CP [id number] 08/07/2015 16:03:00 08/16/2015 14:55:00 DIS Inpatient DAVID HERNANDEZ, DAYDAY Aguiar [facility] IRF DEBILITY [id number] 06/29/2015 08:33:00 06/30/2015 09:30:00 DIS Outpatient EVERTON SHAH MD [facility] CATH DIZZINES,HYPOTENSION [id number] 06/17/2015 11:21:00 06/17/2015 18:07:00 DIS Emergency MIRACLE HERNANDEZ, LASHA [facility] ER CHEST PAIN/LOW BP
--- NOTE | 2018-02-24 17:25 | NUR ---
TRIED TO CALL FOR REPORT AT THIS TIME, NO ANSWER IN ER.
--- NOTE | 2018-02-24 18:04 | NUR ---
Report received from YENIFER Owens from ED at this time.
[2018-02-24 18:15] VITALS: BP 145/79
--- NOTE | 2018-02-24 18:15 | NUR ---
XIOMARA BLUNT Tiny admitted to room 422-1, with an admitting diagnosis of paroxysmal v-tach, and chest pain, on 02/24/18 from er via w/c, accompanied by ed staff. XIOMARA LBUNT introduced to surroundings, call light, bed controls, phone, TV, temperature control, lights, meal times, smoking policy, visitor policy, side rail policy, bathrooms and showers. Patient Rights given to patient in the handbook. XIOMARA BLUNT verbalizes understanding that [facility] is not responsible for the loss or damage to any personal effects or valuables that are kept in the patients posession during their hospitalization. XIOMARA BLUNT verbalizes understanding of Interdisciplinary Patient Education. Patient and/or family were informed about the Rapid Response Team and its purpose.
[2018-02-24] MEDS ORDERED: NITROGLYCERIN 0.4 MG SL TABS BTL 25'S SL PRN (18:30)
[2018-02-24] MEDS ORDERED: morphine INJ 4 MG/ML 1 ML (VIAL/SYRINGE) IVP PRN (18:30)
[2018-02-24] MEDS ORDERED: NS IV 1000 ML 1,000 ML IV SCH ×2 (18:30→19:15)
[2018-02-24] MEDS ORDERED: RIVA20TA PO (19:35)
--- NOTE | 2018-02-24 19:45 | NUR ---
THIS RN SPOKE WITH NERISSA TUTTLE OF THIS PATIENT AND SHE REPORTS THAT SHE WILL GO TO THE PATIENT'S HOUSE AND RETRIEVE HER MEDICATIONS SO THAT THIS FACILITY CAN GET AN ACCURATE MEDICATION RECORD FOR THIS PATIENT. THIS RN REPORTED THIS TO THE ONCOMING RN ( PATRICIA )THAT WILL COMPLETE THE RECONCILIATION. THE RN WAS THEN TO REPORT TO DR. SHAH THAT THE RECONCILIATION WAS COMPLETED SO THAT THE HOME MEDICATIONS COULD BE RESTARTED
[2018-02-24 19:55] VITALS: BP 145/79
[2018-02-24] MEDS ORDERED: RT-ALBUTEROL SULF 2.5 MG/3 ML PRE-MIX VIAL INH PRN (20:30)
[2018-02-24 20:35] VITALS: BP 166/75
[2018-02-24] MEDS: meTOprolol TARTRATE 25 MG (LOPRESSOR) TABLET PO SCH (22:40)
[2018-02-24] MEDS: POTASSIUM CL 10MEQ/50ML IVPB 50 ML IV SCH ×2 (22:42→23:49)
[2018-02-25] VITALS (15 sets, daily range): BP systolic 111–161; BP diastolic 61–75
[2018-02-25] MEDS ORDERED: POTASSIUM CL 10MEQ/50ML IVPB 100 ML IV ONE (01:08)
[2018-02-25] MEDS: POTASSIUM CL 10MEQ/50ML IVPB 50 ML IV SCH ×2 (01:14→02:20)
[2018-02-25 06:03] LABS: BASOPHILS % (AUTO) 1 % (0-10); EOSINOPHILS # (AUTO) 0.2 10^3/uL (0.0-0.3); EOSINOPHILS % (AUTO) 4 % (0-10); HEMATOCRIT 30 % (35-52); LYMPHOCYTES # (AUTO) 1.6 X 10^3 (1.0-4.0); LYMPHOCYTES % (AUTO) 30 % (12-44); MEAN CORPUSCULAR HEMOGLOBIN 24 PG (25-34); MEAN CORPUSCULAR HGB CONC 30 G/DL (32-36); MEAN CORPUSCULAR VOLUME 79 FL (80-99); MEAN PLATELET VOLUME 10.8 FL (7.4-10.4); MONOCYTES # (AUTO) 0.4 X 10^3 (0.0-1.0); MONOCYTES % (AUTO) 7 % (0-12); NEUTROPHILS # (AUTO) 3.3 X 10^3 (1.8-7.8); NEUTROPHILS % (AUTO) 60 % (42-75); PLATELET COUNT 283 10^3/uL (130-400); RED BLOOD COUNT 3.79 10^6/uL (4.35-5.85); RED CELL DISTRIBUTION WIDTH 15.5 % (10.0-14.5); WHITE BLOOD COUNT 5.5 10^3/uL (4.3-11.0)
[2018-02-25 06:34] LABS: ALANINE AMINOTRANSFERASE 9 U/L (0-55); ALBUMIN 3.4 GM/DL (3.2-4.5); ALKALINE PHOSPHATASE 57 U/L (40-136); BILIRUBIN,TOTAL 0.3 MG/DL (0.1-1.0); BUN/CREATININE RATIO 16; CALCIUM 8.5 MG/DL (8.5-10.1); CARBON DIOXIDE 22 MMOL/L (21-32); CHLORIDE 110 MMOL/L (98-107); CHOLESTEROL 185 MG/DL (< 200); CREATININE SERUM 0.81 MG/DL (0.60-1.30); GFR ESTIMATED > 60; GLUCOSE 92 MG/DL (70-105); HDL CHOLESTEROL 51 MG/DL (40-60); SODIUM 141 MMOL/L (135-145); TOTAL PROTEIN 6.7 GM/DL (6.4-8.2); TRIGLYCERIDES 50 MG/DL (<150); VLDL CHOLESTEROL 10 MG/DL (5-40)
--- NOTE | 2018-02-25 08:56 | Cardiology History & Physical ---
HPI-Cardiology Cardiology Consultation Date of Consultation 02/25/18 Date of Admission Time Seen by Provider: 08:51 Indication: ventricular tachycardia HPI 77-year-old lady with history of CVA, hypertension, was in her usual state of health, part of her workup for CVA was implantable loop recorder which detected nonsustained ventricular tachycardia, expressed that she's been having dizziness and lightheadedness. No full syncope was reported. reported mild chest discomfort yesterday. We contacted her and asked her to go to the emergency room where she was admitted. Overnight she has been feeling better. No further episode of chest pain. No arrhythmia was noted on telemetry. 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) Respiratory No Cardiovascular Yes (tumor in heart removed) Hypertension Neurological Yes Stroke Reproductive System Hx Reproductive Disorders: No Sexually Transmitted Disease: No HIV/AIDS: No Female Reproductive Disorders: Denies Menopausal Genitourinary No Gastrointestinal Yes Abdominal Hernia, Gastroesophageal Reflux Musculoskeletal No Endocrine Yes Hyperthyroidism HEENT Yes (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 ROS-Cardiology Review of Systems General: No Chills, No Night Sweats; Fatigue; No Malaise, No Appetite HEENT: No Head Aches, No Visual Changes, No Eye Pain, No Ear Pain, No Dysphasia , No Sinus Congestion, No Post Nasal Drip, No Sore Throat Pulmonary: No Dyspnea, No Cough, No Pleuritic Chest Pain Cardiovascular: Chest Pain; No: Palpitations, Orthopnea, Paroxysmal Noc. Dyspnea, Edema, Lt Headedness Gastrointestinal: No: Nausea, Vomiting, Abdominal Pain, Diarrhea, Constipation , Melena, Hematochezia Genitourinary: No Dysuria, No Frequency, No Incontinence, No Hematuria, No Retention Musculoskeletal: No: neck pain, shoulder pain, arm pain, back pain, hand pain, leg pain, foot pain Neurological: No: Weakness, Numbness, Incoordination, Change in speech, Confusion, Seizures Home Medications & Allergies Allergies: Coded Allergies: Sulfa (Sulfonamide Antibiotics) (Verified Allergy, Intermediate, Rash, ) sulfamethoxazole (Verified Allergy, Intermediate, rash, 02/24/18) trimethoprim (Verified Allergy, Intermediate, rash, 02/24/18) hydrocodone (Verified Allergy, Unknown, 02/24/18) Exam-Cardiology Vital Signs Vital Signs Date Time Temp Pulse Resp B/P (MAP) Pulse Ox O2 Delivery O2 Flow Rate FiO2 02/25/18 08:00 97.9 58 16 149/72 (97) 98 Room Air 02/25/18 01:46 60.00 Exam General Appearance: Alert, Oriented X3, Cooperative, No Acute Distress HEENT: Atraumatic, PERRLA Respiratory: Clear to Auscultation, Normal Air Movement Cardiovascular: Regular Rate, Normal S1, Normal S2, No Murmurs Abdominal: Normal Bowel Sounds, Soft, No Tenderness, No Hepatosplenomegaly, No Masses Extremities: No Clubbing, No Cyanosis, No Edema, Normal Pulses, No Tenderness/ Swelling Skin: No Rashes, No Breakdown, No Significant Lesion Neuro: Normal Gait, Normal Speech, Strength at 5/5 X4 Ext, Normal Tone, Sensation Intact Psych/Mental Status: Mental Status NL, Mood NL Results Labs Labs Laboratory Tests 02/24/18 14:17: White Blood Count 7.7, Red Blood Count 4.37, Hemoglobin 10.5L, Hematocrit 34L, Mean Corpuscular Volume 78L, Mean Corpuscular Hemoglobin 24L, Mean Corpuscular Hemoglobin Concent 31L, Red Cell Distribution Width 15.8H, Platelet Count 379, Mean Platelet Volume 10.7H, Neutrophils (%) (Auto) 65, Lymphocytes (%) (Auto) 28 , Monocytes (%) (Auto) 6, Eosinophils (%) (Auto) 1, Basophils (%) (Auto) 1, Neutrophils # (Auto) 5.0, Lymphocytes # (Auto) 2.2, Monocytes # (Auto) 0.4, Eosinophils # (Auto) 0.1, Basophils # (Auto) 0.1, Prothrombin Time 18.8H, INR Comment 1.6H, Activated Partial Thromboplast Time 41H, D-Dimer 1.56H, Sodium Level 141, Potassium Level 3.2L, Chloride Level 102, Carbon Dioxide Level 25, Anion Gap 14, Blood Urea Nitrogen 16, Creatinine 1.06, Estimat Glomerular Filtration Rate 50, BUN/Creatinine Ratio 15, Glucose Level 85, Calcium Level 9.5 , Corrected Calcium 9.2, Magnesium Level 2.0, Total Bilirubin 0.5, Aspartate Amino Transf (AST/SGOT) 20, Alanine Aminotransferase (ALT/SGPT) 11, Alkaline Phosphatase 65, Myoglobin 53.5, Troponin I < 0.30, B-Type Natriuretic Peptide 90.2, Total Protein 8.6H, Albumin 4.4 02/24/18 20:15: Myoglobin 48.0, Troponin I < 0.30 02/25/18 05:15: White Blood Count 5.5, Red Blood Count 3.79L, Hemoglobin 9.0L, Hematocrit 30L, Mean Corpuscular Volume 79L, Mean Corpuscular Hemoglobin 24L, Mean Corpuscular Hemoglobin Concent 30L, Red Cell Distribution Width 15.5H, Platelet Count 283, Mean Platelet Volume 10.8H, Neutrophils (%) (Auto) 60, Lymphocytes (%) (Auto) 30 , Monocytes (%) (Auto) 7, Eosinophils (%) (Auto) 4, Basophils (%) (Auto) 1, Neutrophils # (Auto) 3.3, Lymphocytes # (Auto) 1.6, Monocytes # (Auto) 0.4, Eosinophils # (Auto) 0.2, Basophils # (Auto) 0.0, Sodium Level 141, Potassium Level 4.0, Chloride Level 110H, Carbon Dioxide Level 22, Anion Gap 9, Blood Urea Nitrogen 13, Creatinine 0.81, Estimat Glomerular Filtration Rate > 60, BUN/ Creatinine Ratio 16, Glucose Level 92, Calcium Level 8.5, Corrected Calcium 9.0 , Total Bilirubin 0.3, Aspartate Amino Transf (AST/SGOT) 15, Alanine Aminotransferase (ALT/SGPT) 9, Alkaline Phosphatase 57, Total Protein 6.7, Albumin 3.4, Triglycerides Level 50, Cholesterol Level 185, LDL Cholesterol Direct 130H, VLDL Cholesterol 10, HDL Cholesterol 51 A/P-Cardiology Admission Diagnosis Nonsustained ventricular tachycardia Chest pain nonspecific etiology CVA Dizziness Admission Status: Observation Assessment/Plan Nonsustained ventricular tachycardia noted on loop recorder. Etiology is unknown, underlying coronary artery disease is a possibility. I will proceed with cardiac catheterization in addition she was started on low-dose beta blockers. We'll continue monitoring. Chest pain nonspecific urology, planning to proceed with cardiac catheterization History of blindness in the right eye, transient vision loss in the left eye, Initially thought to be due to her atrial myxoma. Patient had workup with dough braker and neurologist, underwent carotid duplex, CT head, MRI, all unremarkable. She is status post Linq implantation for further monitoring for cryptogenic stroke. Monitoring her Linq device showed no arrhythmia. She had a LEIGHANN done in June 2017 and it showed normal left ventricular size and function, aortic valve sclerosis, no shunt, mild to moderate MR. I will continue monitoring no changes are recommended Orthostatic dizziness and hypotension, reporting improvement. 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 Recovered well, continue to monitor Episode of unresponsiveness and change in mental status after receiving 2 mg of Versed and 50 mg of fentanyl require about 1 hour of recovery, full recovery. Medication were reversed. Continue to monitor Peripheral neuropathy, taking gabapentin, continue to monitor. 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 Cardiac catheterization was carried out showing [id number] coronary artery disease nonobstructive disease. Patient was noted to have multiple episode of hypoxemia during the procedure with some snoring. I am suspicious of underlying sleep apnea and recommend sleep study as an outpatient in addition I will start her on low-dose beta blockers and monitor tolerance and response and started on statin, her LDL was 130. Clinical Quality Measures AMI/AHF: ASA po Prior to arrival: No DVT/VTE Risk/Contraindication: Risk Factor Score Per Nursin RFS Level Per Nursing on Admit: 4+=Very High EVERTON SHAH MD Feb 25, 2018 08:56
[2018-02-25] MEDS ORDERED: LEVOTHYROXINE 50 MCG (LEVOTHROID) TAB PO SCH (09:00)
[2018-02-25] MEDS ORDERED: ASPIRIN E.C. 81 MG (ECOTRIN) TAB PO SCH (09:00)
[2018-02-25] MEDS: meTOprolol TARTRATE 25 MG (LOPRESSOR) TABLET PO SCH (09:01)
[2018-02-25] MEDS ORDERED: HEParin 1000 UNIT/ML (10ML VIAL) FOR BOLUS ONE (09:16)
[2018-02-25] MEDS ORDERED: MIDAZOLAM 5 MG/5 ML (VERSED) VIAL ONE (09:16)
[2018-02-25] MEDS ORDERED: fentaNYL INJECTION 100 MCG/2 ML AMP ONE (09:16)
[2018-02-25] MEDS ORDERED: NS IV 1000 ML 0 ML ONE (09:16)
[2018-02-25] MEDS ORDERED: LIDOCAINE 1% INJ 20 ML 20 ML VIAL ONE (09:16)
[2018-02-25] MEDS ORDERED: HEParin (CATH LAB) 2,000 ML IV ONE (09:16)
--- NOTE | 2018-02-25 09:38 | Cardiac Procedure Note-CS/ASA ---
Pre-Procedure Note Pre-Op Procedure Note H&P Reviewed The H&P was reviewed, patient examined and no changes noted. Date H&P Reviewed: Feb 25, 2018 Time H&P Reviewed: 09:37 Conscious Sedation Pre-Proced Time 09:37 ASA Score 3 For ASA 3 and 4: Consider anesthesia and medical clearance. Also, for patients with a history of failed moderate sedation consider anesthesia. Airway Lungs Heart ASA score ASA 1: a normal healthy patient ASA 2: a patient with a mild systemic disease (mid diabetes, controlled hypertension, obesity x ASA 3: a patient with a severe systemic disease that limits activity (angina , COPD, prior Myocardial infarction) ASA 4: a patient with an incapacitating disease that is a constant threat to life (CHF, renal failure) ASA 5: a moribund patient not expected to survive 24 hrs. (ruptured aneurysm) ASA 6: a declared brain patient whose organs are being harvested. For emergent operations, add the letter E after the classification Mallampati Classification Grade 3 Sedation Plan Analgesia, Amnesia, Plan communicated to team members, Discussed options with patient/fam, Discussed risks with patient/fam The patient is an appropriate candidate to undergo the planned procedure, sedation, and anesthesia. The patient immediately re-assessed prior to indication. EVERTON SHAH MD Feb 25, 2018 09:37
[2018-02-25] MEDS ORDERED: OMEP20CA12 PO (10:11)
[2018-02-25] MEDS ORDERED: HYDR25TA4 PO (10:12)
--- NOTE | 2018-02-25 10:12 | NUR ---
RECEIVED PATIENT HOME MEDICATION BOTTLES
[2018-02-25] MEDS ORDERED: NS IV 1000 ML 1,000 ML IV SCH (10:13)
[2018-02-25] MEDS ORDERED: PATIENT MAY USE OWN MEDS, ALL PO SCH (10:15)
--- NOTE | 2018-02-25 10:18 | Cardiac Cath Report ---
Cardiac Cath Report Physician (s)/Blister Packaging Machine Operator (s) Physician EVERTON SHAH MD Pre-Procedure Diagnosis Pre-Procedure Diagnosis: ventricular tachycardia Post-Procedure Note Procedure Start Date: Feb 25, 2018 Name of Procedure: left heart catheterization Findings/Procedure Note PROCEDURE NOTE: After explaining the procedure to the patient, all pros and cons were explained , all questions were answered. The patient signed the consent and then she was placed on the cardiac catheterization laboratory. Groin was prepped SL fashion local anesthesia was used. Sheath placed in the right femoral artery. Peri right and left catheter were used to access the coronary system. Pigtail was used to access the left ventricular cavity. Left ventriculogram was done At the end of the procedure the sheath was removed. manual pressure applied FINDINGS: Hemodynamics LV 114/15, end-diastolic pressure 15 Aorta 120/50 mean of 77 ANATOMY: Left Main has no obstructive disease Left Anterior Descending is small to moderate in size with abrupt ending above the apex, mild to moderate disease at the midportion nonobstructive disease Left Circumflex is dominant artery with mild to moderate disease distally nonobstructive disease Right Coronory Artery is codominant artery, the right PDA has a proximal moderate disease, fairly small artery LV Gram was done in the right anterior oblique position left ventricle is normal in size with normal contractility estimated ejection fraction 60 percent CONCLUSION: 1. Moderate disease in the distal right coronary artery/right PDA, fairly small artery less than 1 mm in diameter 2. Mild to moderate disease in the distal circumflex artery and proximal to mid LAD, nonobstructive disease 3. Normal left ventricular size and systolic function estimated ejection fraction 60 percent, normal left ventricular end-diastolic pressure DISCUSSION AND RECOMMENDATION: medical therapy is recommended no intervention is needed Anesthesia Type: Conscious Sedation Estimated blood loss (mL): 15 ML Contrast Amount: 63 ml Total Radiation Dose: 305 mGy Post-Procedure Diagnosis Post-operative diagnosis: Nonsustained ventricular tachycardia Coronary artery disease Atrial myxoma CVA EVERTON SHAH MD Feb 25, 2018 10:18
[2018-02-25] MEDS ORDERED: ATOR10TA PO (10:23)
[2018-02-25] MEDS ORDERED: METO-333 PO (10:23)
--- NOTE | 2018-02-25 10:24 | Discharge Inst-Post CATH ---
Discharge Inst-CATH/EP Post Cardiac Cath/EP D/C Inst Follow Up/Plan Appointment with Dr Baugh's office in 2 weeks CARDIAC CATH DISCHARGE INSTRUCTIONS *Hold Metformin for 48 hours post heart cath. ACTIVITY * Go Home directly and rest. * Limit activity of the leg (or wrist if it was used) for 7 days including aerobics, swimming, jogging, bicycling, etc. * Restrict stair-climbing for 7 days if possible, if not, climb up with your non -cath leg, then bring together on the same step. * Avoid lifting, pushing, pulling or excessive movement of the affected extremity for 7 days. * Customary sexual activity may be resumed after 2 days-use caution not to use a position that strains or causes pain to the affected extremity. * No driving for 24 hours. * NO SMOKING. * Avoid straining for bowel movements for 7 days. * Gentle walking on level ground is allowed. * Returning to work will depend on the type of procedure and the results. Your doctor will discuss this with you. CALL YOUR DOCTOR FOR ANY OF THE FOLLOWING: *If bleeding from the puncture site occurs- Apply gentle pressure to site with clean cloth and call your doctor or EMS. * If a knot or lump forms under the skin, increases in size, or causes pain. * If bruising appears to be worsening or moving further down your leg instead of disappearing. * Temperature above 101 F. CARE OF YOUR GROIN INCISION; * Bruising or purple discoloration of the skin near the puncture site is common. * You may shower only, no bathtub bathing for 5 days. Be careful to avoid slipping as your leg may feel stiff. * If a closure device was used on your femoral artery, please see the attached guide regarding care of the device and your leg. * Leave the dressing on, until removed by office staff. CARE OF YOUR WRIST INCISION; * Bruising or purple discoloration of the skin near the puncture site is common. * You may shower. * DO NOT submerge wrist. * Leave dressing on, until removed by office staff.. EVERTON BAUGH MD Feb 25, 2018 10:24
[2018-02-25] MEDS ORDERED: ACETAMINOPHEN 325 MG TABLET PO NR (13:45)
== END 2018-02-25 16:00 | disposition home or self-care (01) ==
LOC: EDUNIT# 14:10 → ER 14:11 → 4TH 16:26 → ICU 02-25 10:53
PROVIDERS: ADMIT Internal Medicine Cardiovascular Disease; ATTEND Internal Medicine Cardiovascular Disease
DX: I47.2 Ventricular tachycardia (principal); R07.9 Chest pain, unspecified; I25.10 Atherosclerotic heart disease of native coronary artery without angina pectoris; D21.9 Benign neoplasm of connective and other soft tissue, unspecified; I69.398 Other sequelae of cerebral infarction; I10 Essential (primary) hypertension; K21.9 Gastro-esophageal reflux disease without esophagitis; E05.90 Thyrotoxicosis, unspecified without thyrotoxic crisis or storm; R42 Dizziness and giddiness; I73.9 Peripheral vascular disease, unspecified; Z88.0 Allergy status to penicillin; Z88.5 Allergy status to narcotic agent; Z79.82 Long term (current) use of aspirin; Z79.899 Other long term (current) drug therapy; Z96.9 Presence of functional implant, unspecified
CPT/HCPCS: 36415; 71045; 71275; 80053; 80061; 83735; 83874; 83880; 84484; 85025; 85379; 85610; 85730; 93005; 93041; 93458; 94660; G0378

== ENCOUNTER 2018-08-20 17:32 | Outpatient (CLI) | payer MEDICARE, OTHER ==
[~2018-08-20] VITALS: Ht 161.3 cm; Wt 63.5 kg
[~2018-08-20 17:32] MED LIST changes: +ATOR10TA PO; +METO-333 PO; +OMEP20CA12 PO; -RIVA20TA PO; +RIVA20TA2 PO
--- NOTE | 2018-08-20 17:40 | NUR ---
Admitted into room 423 as an outpatient to receive 2 units PRBC's (pt sent here from Dr Resendiz's office).
[2018-08-20] MEDS ORDERED: FUROSEMIDE 40 MG/4 ML INJ (LASIX) IV NR (18:00)
[2018-08-20] MEDS ORDERED: ACETAMINOPHEN 325 MG TABLET PO NR (18:00)
[2018-08-20] MEDS ORDERED: diphenhydrAMINE 25 MG TAB (BENADRYL) PO NR (18:00)
[2018-08-20] MEDS ORDERED: CATHETER FLUSH 10 ML SYR IV PRN (18:00)
[2018-08-20] MEDS ORDERED: diphenhydrAMINE 50 MG/ML INJ (BENADRYL) IV PRN (18:00)
[2018-08-20 18:10] VITALS: BP 136/61
[2018-08-20] MEDS ORDERED: NS IV 500 ML 500 ML IV ONE (19:30)
[2018-08-20] MEDS ORDERED: NS IV 500 ML 500 ML ONE (19:31)
--- NOTE | 2018-08-20 19:50 | NUR ---
Awake and alert with daughter at bedside. Patient verbalized understanding of receiving 2 units PRBC's and lasix in between units. Pt denies any other needs at this time.
[2018-08-20 20:42] VITALS: BP 132/60
[2018-08-20 21:00] VITALS: BP 117/66
[2018-08-20 23:04] VITALS: BP 137/64
[2018-08-21 00:24] VITALS: BP 143/69
[2018-08-21 00:42] VITALS: BP 148/70
[2018-08-21 03:08] VITALS: BP 159/70
[2018-08-21 05:38] LABS: HEMOGLOBIN 9.1 G/DL (11.5-16.0); MEAN PLATELET VOLUME 10.3 FL (7.4-10.4); RED CELL DISTRIBUTION WIDTH 17.5 % (10.0-14.5); WHITE BLOOD COUNT 5.6 10^3/uL (4.3-11.0)
[2018-08-21 07:32] VITALS: BP_SYST 136; BP_SYST 159; BP_DIAS 61; BP_DIAS 70
--- NOTE | 2018-08-21 07:48 | NUR ---
Dr. Resendiz notified of hemoglobin and hematocrit of 9.1 & 29.
== END 2018-08-21 07:30 ==
LOC: 4TH 17:32 → 4THo 17:32
PROVIDERS: ATTEND Family Medicine
DX: D64.9 Anemia, unspecified (principal)
CPT/HCPCS: 36415; 85027; 86850; 86900; 86901; 86920

== ENCOUNTER 2018-10-09 13:52 | Outpatient (CLI) | payer MEDICARE, OTHER ==
[~2018-10-09] VITALS: Ht 161.3 cm; Wt 63.5 kg
[~2018-10-09 13:52] MED LIST changes: -OMEP20CA12 PO; +OMEP20CA13 PO
== END 2018-10-09 14:14 | disposition home or self-care (01) ==
LOC: PREOP 13:52
PROVIDERS: ATTEND Surgery
DX: Z01.818 Encounter for other preprocedural examination (principal); D64.9 Anemia, unspecified; K92.1 Melena

== ENCOUNTER 2018-10-13 09:14 | Day surgery (SDC) | payer MEDICARE, OTHER ==
[2018-10-13] VITALS (7 sets, daily range): BP systolic 101–168; BP diastolic 57–74
[~2018-10-13] VITALS: Ht 161.3 cm; Wt 63.5 kg
[~2018-10-13 09:14] MED LIST changes: +LACTATED RINGERS 1,000 ML IV ONE
[2018-10-13] MEDS ORDERED: PROPOFOL INJECTION 50 ML IV ONE (09:37)
[2018-10-13] MEDS ORDERED: LACTATED RINGERS 1,000 ML IV STA (09:39)
--- NOTE | 2018-10-13 09:39 | Progress Note-Pre Operative ---
Pre-Operative Progress Note H&P Reviewed The H&P was reviewed, patient examined and no changes noted. Time Seen by Provider: 09:37 Date H&P Reviewed: Oct 13, 2018 Time H&P Reviewed: 09:38 Pre-Operative Diagnosis: Anemia, Melena DAYDAY TOLENTINO DO Oct 13, 2018 09:39
[2018-10-13] MEDS ORDERED: fentaNYL INJECTION 100 MCG/2 ML AMP IVP ONE (09:45)
[2018-10-13] MEDS ORDERED: HURRICAINE EXT TUBE (BENZOCAINE) XX PRN (09:45)
[2018-10-13] MEDS ORDERED: MIDAZOLAM 2 MG/2 ML (VERSED) VIAL IVP ONE (09:45)
[2018-10-13] MEDS ORDERED: HURRICAINE EXT TUBE (BENZOCAINE) ONE (10:01)
--- NOTE | 2018-10-13 10:32 | Progress Note-Post Operative ---
Post-Operative Progess Note Surgeon (s)/Engine Maintenance Mechanic (s) Surgeon DAYDAY TOLENTINO DO Engine Maintenance Mechanic: none Pre-Operative Diagnosis Anemia, Melena Post-Operative Diagnosis Same Gastritis ??Duodenal Stricture Hiatal hernia esophagitis Diverticula Internal hemorrhoids Procedure & Operative Findings Date of Procedure 10/13/18 Procedure Performed/Findings EGD with bx Colonoscopy Anesthesia Type IV sedation by CODING COMPLIANCE MANAGER Estimated Blood Loss Estimated blood loss (mL): scant Specimens/Packing Specimens Removed duodenal bx antral bx Body of stomach bx GE jxn bx DAYDAY TOLENTINO DO Oct 13, 2018 10:32
--- NOTE | 2018-10-13 10:33 | Endoscopy Discharge Instruct ---
Endo Procedure/Findings Findings 1.: Gastritis, Stricture 2.: Hiatal Hernia 3.: Diverticulosis 4.: Internal Hemorrhoids Discharge Instructions - Activity: You might feel a little sleepy until tomorrow. This is due to the me dicine you received to relax you. Until tomorrow, you should: NOT drive a car, operate machinery or power tools. NOT drink any alcoholic beverages. NOT make any important decisions or sign importortant papers. Do not return to work until tomorrow, unless otherwise instructed. Resume previous activities tomorrow. Diet: Start by taking liquids. If you tolerate liquids, advance to solid food. make an appointment for one week Notify Physician - If you experience excessive bleeding, unusual abdominal pain, fever, or chest pain, contact your doctor immediately. Follow-Up: - I have received and understand the above instructions and will call my doctor if I have any further questions. Patient Signature Date Nurse Signature Other (Relationship) DAYDAY TOLENTINO DO Oct 13, 2018 10:33
--- NOTE | 2018-10-13 18:54 | OPERATIVE REPORT ---
DATE OF SERVICE: 10/13/2018 PREOPERATIVE DIAGNOSES: 1. Anemia. 2. Melena. POSTOPERATIVE DIAGNOSES: 1. Gastritis. 2. Questionable duodenal stricture. 3. Hiatal hernia. 4. Esophagitis. 5. Diverticula. 6. Internal hemorrhoids. PROCEDURES PERFORMED: 1. Esophagogastroduodenoscopy with biopsy. 2. Colonoscopy. SURGEON: Eric Ulrich DO. WATER TREATMENT TECHNICIAN: None. ANESTHESIA: IV sedation by DATA COLLECTION SPECIALIST. SPECIMEN: Biopsy from the duodenum, biopsy from the antrum, biopsy from body of stomach and biopsy from the GE junction. BLOOD LOSS: Scant. FLUIDS: Per Anesthesia. POSTOPERATIVE CONDITION: Stable. INDICATION FOR PROCEDURE: The patient is a 77-year-old female who has been having melena and found to be anemic. She is on blood thinners, needed a workup, EGD and colonoscopy. FINDINGS: The patient had some gastritis, questionable duodenal stricture. She had a hiatal hernia and esophagitis and then she had some diverticula and internal hemorrhoids, nothing else obvious in the colon. PROCEDURE NOTE: After informed consent was obtained, the patient was brought to the endoscopy suite and placed in the left lateral decubitus position. She was administered IV sedation by the DATA COLLECTION SPECIALIST who then monitored her vitals the entire time, heart rate, blood pressure, pulse ox and the scope was inserted down the mouth through the esophagus into the stomach. Upon entering the stomach, noted some gastritis, took a picture of this, then pushed into the duodenum and get into the first portion of duodenum, but there was almost a stricture and could not get past this first portion, took a picture of this and elected to do a biopsy here and then pulled back into the antrum, did a biopsy of the antrum, pulled back a little more and did a biopsy of body of stomach and then retroflexed the scope, saw a small hiatal hernia, took a picture of this, looked like she had some esophagitis. We pulled back into the GE junction, so did a biopsy here. The rest of the esophagus looked fine, pulled the scope up the esophagus and out the mouth. Switched camera, switched gloves, went down below, started the colonoscopy, pushed the scope into about 150 cm, able to get all the way to the cecum. On the way in, noted some diverticula, took a picture of this. Once in the cecum, took a picture of appendiceal orifice, noted the ileocecal valve and then slowly withdrew the scope insufflating to look circumferentially at the waters, looking the cecum, up the ascending colon to the hepatic flexure, then down the transverse colon, splenic flexure, into the descending colon, finally into the sigmoid and into the rectum, retroflexed the rectal vault. The patient had some very large internal hemorrhoids, at least grade II, which could have been causing some bleeding, but probably not melena. Scope was then removed. The patient tolerated the procedure, recovered in endoscopy suite. Job ID: [id number] DocumentID: [id number] Dictated Date: 10/13/2018 13:59:09 Insole Department Worker Date: 10/13/2018 18:52:37 Dictated By: ERIC ULRICH DO
== END 2018-10-13 11:10 | disposition home or self-care (01) ==
LOC: ENDO 09:14
PROVIDERS: ATTEND Surgery
DX: K29.50 Unspecified chronic gastritis without bleeding (principal); K21.0 Gastro-esophageal reflux disease with esophagitis; K31.5 Obstruction of duodenum; K44.9 Diaphragmatic hernia without obstruction or gangrene; K57.30 Diverticulosis of large intestine without perforation or abscess without bleeding; K64.8 Other hemorrhoids; K64.1 Second degree hemorrhoids; K92.1 Melena; D64.9 Anemia, unspecified; I10 Essential (primary) hypertension; I95.1 Orthostatic hypotension; E03.9 Hypothyroidism, unspecified; D15.1 Benign neoplasm of heart; Z88.2 Allergy status to sulfonamides; Z88.5 Allergy status to narcotic agent; Z88.1 Allergy status to other antibiotic agents; Z82.49 Family history of ischemic heart disease and other diseases of the circulatory system; Z80.9 Family history of malignant neoplasm, unspecified; Z90.89 Acquired absence of other organs; Z96.651 Presence of right artificial knee joint; Z90.710 Acquired absence of both cervix and uterus
CPT/HCPCS: 88305

== ENCOUNTER 2018-11-22 09:47 | Emergency (ER) | payer MEDICARE, OTHER ==
[~2018-11-22] VITALS: Ht 160 cm; Wt 61.0 kg
[~2018-11-22 09:47] MED LIST changes: -LACTATED RINGERS 1,000 ML IV ONE
--- NOTE | 2018-11-22 10:56 | ED Integumentary General ---
General Chief Complaint: Bite-Animal/Human/Insect Stated Complaint: SPIDER BITE ON RIGHT FOOT Nursing Triage Note: PT TO ROOM 3 PT CO OF POSSIBLE SPIDER BITE TO R INNER FOOT, STATES RECIEVED ON SATURDAY NITE WHILE IN BED. PT CO OF PAIN AT SITE. HAS REDDENED AREA W DARK CENTER NOTED ON FOOT Source: patient Exam Limitations: no limitations (BECKY PANDA MED STUDENT) History of Present Illness Date Seen by Provider: Nov 22, 2018 Time Seen by Provider: 10:40 Initial Comments The patient is a wd/wn 78 y/o female who is here with a chief complaint of spider bite. She reports that she was asleep Saturday night and felt "something bite" her. She state that she has recently seen multiple brown recluse spiders around her house and basement. Her foot is swolen, painful and throbbing at 5/10. She denies any fevers, nausea, vomiting, chest pains, or shortness of breath. Timing/Duration: week Severity: mild Possible Cause: insect bite Associated Symptoms: No fever, No numbness (BECKY PANDA MED STUDENT) Initial Comments Here with concerns of spider bite to the right foot. Does have a central black core surrounded by erythema. Denies fever or chills. (JAXON DONAHUE MD) Allergies and Home Medications Allergies Coded Allergies: Sulfa (Sulfonamide Antibiotics) (Verified Allergy, Intermediate, Rash, 02/24/18) sulfamethoxazole (Verified Allergy, Intermediate, rash, 02/24/18) trimethoprim (Verified Allergy, Intermediate, rash, 02/24/18) hydrocodone (Verified Allergy, Unknown, 02/24/18) Home Medications Cyanocobalamin 1,000 Mcg/Ml Inj, 1,000 MCG IJ MONTHLY, (Reported) Gabapentin 300 Mg Capsule, 300 MG PO TID, (Reported) Levothyroxine Sodium 50 Mcg Tablet, 50 MCG PO DAILY, (Reported) Metoprolol Tartrate 25 Mg Tablet, 12.5 MG PO BID Prescribed by: EVERTON SHAH on 02/25/18 1023 Omeprazole 20 Mg Capsule.dr, 20 MG PO DAILY, (Reported) Rivaroxaban 20 Mg Tablet, 20 MG PO HS Prescribed by: EMILI MENENDEZ on 02/24/18 193 Patient Home Medication List Home Medication List Reviewed: Yes (JAXON DONAHUE MD) Review of Systems Review of Systems Constitutional: No fever, No malaise EENTM: No blurred vision, No double vision Respiratory: No cough, No short of breath Cardiovascular: No chest pain, No palpitations Gastrointestinal: No nausea, No vomiting Skin: change in color, lesions (BECKY PANDA) Respiratory: no symptoms reported Cardiovascular: no symptoms reported Skin: change in color, lesions (JAXON DONAHUE MD) Past Aomvowq-Pbvmfs-Fjlzvf Hx Past Med/Social Hx: Reviewed Nursing Past Med/Soc Hx (JAXON DONAHUE MD) Patient Social History Alcohol Use: Denies Use Recreational Drug Use: No Smoking Status: Never a Smoker 2nd Hand Smoke Exposure: Yes Recent Foreign Travel: No Contact w/Someone Who Travel: No Recent Infectious Disease Expo: No Recent Hopitalizations: No Physical Abuse: No Sexual Abuse: No (BECKY PANDA) Immunizations Up To Date Tetanus Booster (TDap): More than 5yrs PED Vaccines UTD: Yes Date of Pneumonia Vaccine: Dec 02, 2017 Date of Influenza Vaccine: Dec 02, 2017 (BECKY PANDA) Seasonal Allergies Seasonal Allergies: No (BECKY PANDA) Past Medical History 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) Appendectomy, Gallbladder, Hysterectomy, Joint Replacement, Orthopedic Respiratory: No Currently Using CPAP: No Currently Using BIPAP: No 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) Hypertension Neurological: Yes Stroke Reproductive Disorders: No Female 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 No Pertinent Family Hx (BECKY PANDA) Physical Exam Vital Signs Vital Signs - First Documented 11/22/18 09:55 Temp 36.4 Pulse 96 Resp 18 B/P (MAP) 146/69 (94) Pulse Ox 98 (JAXON DONAHUE MD) Vital Signs Capillary Refill : Less Than 3 Seconds (BECKY PANDA STUDENT) General Appearance: WD/WN, no apparent distress HEENT: PERRL/EOMI; No photophobia Cardiovascular: regular rate, rhythm, no edema, no murmur Respiratory: chest non-tender, lungs clear, normal breath sounds Back: normal inspection, no CVA tenderness, no vertebral tenderness Neurologic/Psychiatric: alert, normal mood/affect, oriented x 3 Skin: normal color, warm/dry Skin Problem Location: lower extremities Skin Problem Character: erythema, lesion (BECKY PANDA STUDENT) General Appearance: WD/WN, no apparent distress Cardiovascular: regular rate, rhythm, no murmur Respiratory: lungs clear, normal breath sounds Skin: warm/dry Skin Problem Location: lower extremities Skin Problem Character: erythema, lesion, other (2-3 mm central core that is dark surrounded by approximately 2 cm of erythema. No red streaks noted.) (JAXON DONAHUE MD) Progress/Results/Core Measures Results/Orders Vital Signs/I&O 11/22/18 09:55 Temp 36.4 Pulse 96 Resp 18 B/P (MAP) 146/69 (94) Pulse Ox 98 (JAXON DONAHUE MD) Blood Pressure Mean: 94 Progress Progress Note : Time: 11:00 Progress Note The patient is resting comfortably in the exam room. She will be prescribed oral antibiotic for cellulitis prophylaxis due to decreased peripheral blood flow. She is instructed to contact the surgeon if the necrosis becomes much larger and to come back to the ER if she has symptoms of fever or infection. (BECKY PANDA STUDENT) Progress Note : Progress Note I have seen and evaluated the patient and agree with above except as indicated. I Have directed the plan of care. Discharged home with return precautions. Patient verbalize understanding instructions and agreement with plan. (JAXON DONAHUE MD) Departure Impression Primary Impression: Brown recluse spider bite Qualified Codes: T63.334A - Toxic effect of venom of brown recluse spider, undetermined, initial encounter Disposition: 01 HOME, SELF-CARE Condition: Stable Departure-Patient Inst. Decision time for Depature: 11:16 (JAXON DONAHUE MD) Referrals: MAYUR ADAME MD (PCP/Family) Primary Care Physician DAYDAY TOLENTINO DO Patient Instructions: Spider Bites Add. Discharge Instructions: All discharge instructions reviewed with patient and/or family. Voiced understanding. Take medications as directed. You may use antibiotic ointment and Band-Aid over the wound once or twice daily as needed. It is okay to shower and wash wound. Follow up with her doctor next week for recheck. You may also follow-up with Dr. Tolentino or surgeon of your choice within one week for recheck and further evaluation as well. The wound should heal over the next several weeks. Return for red streaks up the leg, increasing pain, increasing swelling, fever or other concerns as needed. Scripts Cephalexin (Cephalexin) 500 Mg Tablet 500 MG PO TID, #21 TAB 0 Refills Prov: JAXON DONAHUE MD 11/22/18 BECKY PANDA MED STUDENT Nov 22, 2018 10:56 JAXON DONAHUE MD Nov 22, 2018 11:18
[2018-11-22] MEDS ORDERED: CEPH500T PO (11:18)
[2018-11-22 11:38] VITALS: BP 146/69
== END 2018-11-22 11:38 | disposition home or self-care (01) ==
LOC: EDUNIT# 09:47 → ER 09:48
DX: T63.331A Toxic effect of venom of brown recluse spider, accidental (unintentional), initial encounter (principal); I10 Essential (primary) hypertension; K21.9 Gastro-esophageal reflux disease without esophagitis; E05.90 Thyrotoxicosis, unspecified without thyrotoxic crisis or storm; Z86.73 Personal history of transient ischemic attack (TIA), and cerebral infarction without residual deficits; Z88.2 Allergy status to sulfonamides; Z88.1 Allergy status to other antibiotic agents; Z88.5 Allergy status to narcotic agent; Z79.01 Long term (current) use of anticoagulants; Z77.22 Contact with and (suspected) exposure to environmental tobacco smoke (acute) (chronic); Z90.49 Acquired absence of other specified parts of digestive tract; Z90.710 Acquired absence of both cervix and uterus
CPT/HCPCS: 99283